=== PATIENT | female | born 1950 | race African-American/Black ===

== ENCOUNTER → 2016-10-17 | Outpatient (CLI) | payer MEDICARE, OTHER ==
--- NOTE | 2016-10-17 11:46 | KCIC ---
Indication: Postmenopausal. Bone mineral analysis of the lumbar spine and left hip was performed. The bone mineral density of the lumbar spine from L1 to L4 is 1.200 with a T score of 1.4. The bone mineral density of the left femoral neck is 0.968 with a T score of 0.2. IMPRESSION: Normal bone mineral density of the lumbar spine and left hip. Electronically signed by: Chetan Jarquin MD (10/17/2016 11:42 AM) [id number]
--- NOTE | 2016-10-17 13:20 | RAD ---
DATE: 10/17/2016 EXAM: MAMMO LAUREN SCREENING BILATERAL HISTORY: Routine screening COMPARISON: None available The breast parenchyma shows scattered fibroglandular densities. Breast parenchyma level B. FINDINGS: 2-D and 3-D tomosynthesis imaging was performed in CC and MLO projections. There is mild breast distortion and patchy heterogeneous fibroglandular opacities bilaterally compatible with the history of previous breast reduction surgery. No discrete mass or suspicious densities are seen. There are scattered benign type calcifications.. Benign-appearing lymph node type densities are present in the right axillary region. IMPRESSION: There is no mammographic evidence of malignancy either breast. Routine yearly mammographic follow-up is suggested. BI-RADS CATEGORY: 2 BENIGN FINDING(S) RECOMMENDED FOLLOW-UP: 12M 12 MONTH FOLLOW-UP PQRS compliance statement: Patient information was entered into a reminder system with a target due date for the next mammogram. Mammography is a sensitive method for finding small breast cancers, but it does not detect them all and is not a substitute for careful clinical examination. A negative mammogram does not negate a clinically suspicious finding and should not result in delay in biopsying a clinically suspicious abnormality. "Our facility is accredited by the [employer] Mammography Program."
== END | disposition home or self-care (01) ==
LOC: KCIC DEXA 10:54
PROVIDERS: ATTEND Internal Medicine
DX: Z12.31 Encounter for screening mammogram for malignant neoplasm of breast (principal); M81.0 Age-related osteoporosis without current pathological fracture; E11.9 Type 2 diabetes mellitus without complications; Z78.0 Asymptomatic menopausal state
CPT/HCPCS: 77063; 77080; G0202; 77067

== ENCOUNTER 2016-12-11 11:31 | Inpatient (IN) | payer MEDICARE, OTHER ==
[~2016-12-11] VITALS: Ht 160 cm; Wt 124.8 kg
[2016-12-11 12:05] VITALS: BP 189/102
[2016-12-11] MEDS ORDERED: VERA240C2 PO (13:02)
[2016-12-11] MEDS ORDERED: HYDR25TA9 PO (13:02)
[2016-12-11] MEDS ORDERED: PHEN37.53 PO (13:02)
[2016-12-11] MEDS ORDERED: GABA-586 PO (13:02)
[2016-12-11] MEDS ORDERED: MECL25TA3 PO (13:02)
[2016-12-11] MEDS ORDERED: BUDE10.2 IH (13:02)
[2016-12-11] MEDS ORDERED: HYDR-2868 PO (13:02)
[2016-12-11] MEDS ORDERED: ATOR10TA60 PO (13:03)
[2016-12-11] MEDS ORDERED: AMIT10TA PO (13:03)
[2016-12-11] MEDS ORDERED: POTA20TA82 PO (13:03)
[2016-12-11] MEDS ORDERED: DULO30CA2 PO (13:03)
[2016-12-11] MEDS ORDERED: LOSA100T6 PO (13:03)
[2016-12-11] MEDS ORDERED: LORA10TA68 PO (13:03)
[2016-12-11] MEDS ORDERED: MELO15TA23 PO (13:03)
[2016-12-11] MEDS ORDERED: GLIP10TA13 PO (13:03)
[2016-12-11] MEDS ORDERED: MONT10TA9 PO (13:03)
[2016-12-11] MEDS ORDERED: INSU200I4 SQ (13:11)
[2016-12-11] MEDS ORDERED: ACETAMINOPHEN 500 MG TABLET PO PRN (13:30)
--- NOTE | 2016-12-11 14:43 | RAD ---
Indication headache and dizziness. Noncontrast images of the head were obtained. Note is made of a previous examination 13 years ago. The calvarium appears unremarkable. The visualized paranasal sinuses appear unremarkable. There is no subdural or epidural hematoma. There is no mass or midline shift. No hemorrhage is seen. An acute finding is not apparent. IMPRESSION: No acute or significant finding seen on noncontrast CT images of the head. PQRS Compliance Statement: One or more of the following individualized dose reduction techniques were utilized for this examination: 1. Automated exposure control 2. Adjustment of the mA and/or kV according to patient size 3. Use of iterative reconstruction technique
[2016-12-11 14:45] VITALS: BP 157/77
[2016-12-11] MEDS: ONDANSETRON PF 4 MG/2 ML VIAL. IV PRN ×2 (14:59→23:59)
[2016-12-11] MEDS: MORPHINE SULFATE 2 MG/ML DISP.SYRIN. IV PRN ×2 (15:03→23:59)
[2016-12-11] MEDS: MECLIZINE HCL 12.5 MG TABLET. PO SCH ×2 (15:08→20:20)
[2016-12-11] MEDS: hydrALAZINE 25 MG TABLET PO SCH ×2 (15:09→20:22)
[2016-12-11] MEDS: ALBUTEROL SULFATE 2.5 MG/3 ML NEBU. NEB SCH ×2 (16:06→19:29)
[2016-12-11 16:21] LABS: BASO % 0 % (0-3); EOS % 5 % (0-3); HEMATOCRIT 37.1 % (36.0-47.0); HEMOGLOBIN 11.9 g/dL (12.0-15.5); LYMPH # 2.4 x10^3/uL (1.0-4.8); LYMPH % 30 % (24-48); MEAN CORPUSCULAR HEMOGLOBIN 26 pg (25-35); MEAN CORPUSCULAR HGB CONC 32 g/dL (31-37); MEAN CORPUSCULAR VOLUME 82 fL (79-100); MONO % 10 % (0-9); NEUT % 55 % (31-73); PLATELET COUNT 353 x10^3/uL (140-400); RED BLOOD COUNT 4.55 x10^6/uL (3.50-5.40); RED CELL DISTRIBUTION WIDTH 15.5 % (11.5-14.5); WHITE BLOOD COUNT 7.8 x10^3/uL (4.0-11.0)
--- NOTE | 2016-12-11 16:32 | PDOC1 ---
History and Physical Date of Admission Date of Admission 12/11/16 Identification/Chief Complaint Chief Complaint severe H, Dizziness, N/V Problems: Source Source: Patient History of Present Illness History of Present Illness Symptoms started since December 02 she was seen at the emergency room at [facility] for her severe headache her CT of the head at that time was negative she was discharged home and since then she gotten worse with more headache and dizziness and became very nauseous and had several episodes of vomiting she [facility] where she was treated with meclizine and was sent home she came to the office today because she is not able to keep any of her medications down her blood pressure was very high she wasn't feeling good she is nauseated she is very dizzy and having the vertigo along with nausea and vomiting it was felt that it is best to admit her and control her symptoms and the repeat her CT of the head since she did not have a repeat a yesterday when she was seen [facility] although her symptoms are consistent with peripheral vertigo probably from labyrinthitis Past Medical History Cardiovascular: HTN, Hyperlipidemia Pulmonary: Asthma, Other (sleep apnea) CENTRAL NERVOUS SYSTEM: Vertigo GI: GERD Psych: Depression Rheumatologic: Other (DJD, Vit D deffiency) Renal/: UTI Endocrine: Diabetes Past Surgical History Past Surgical History: Other (breast reduction, hernia surgery) Family History Family History: Hypertension Social History Smoke: No ALCOHOL: rare Drugs: None Current Medications Current Medications Current Medications Medications (Trade) Dose Ordered Sig/Marques Start Time Stop Time Status Last Admin Dose Admin Acetaminophen (Tylenol) 500 mg PRN Q6HRS PRN 12/11/16 13:30 Acetaminophen/ Hydrocodone Bitart (Lortab 7.5/325) 1 tab PRN Q8HRS PRN 12/11/16 13:30 Albuterol Sulfate (Ventolin Neb Soln) 2.5 mg RTQID 12/11/16 16:00 12/11/16 16:06 2.5 MG Amitriptyline HCl (Elavil) 10 mg QHS 12/11/16 21:00 Atorvastatin Calcium (Lipitor) 10 mg HS 12/11/16 21:00 Budesonide (Pulmicort) 0.5 mg RTBID 12/11/16 20:00 Cetirizine HCl (ZyrTEC) 10 mg DAILY 12/12/16 09:00 Duloxetine HCl (Cymbalta) 30 mg BID 12/11/16 21:00 Gabapentin (Neurontin) 300 mg QHS 12/11/16 21:00 Glipizide (Glucotrol) 10 mg DAILYAC 12/12/16 07:30 Hydralazine HCl (Apresoline) 25 mg TID 12/11/16 14:00 12/11/16 15:09 25 MG Hydrochlorothiazide (Hydrodiuril) 25 mg DAILY 12/12/16 09:00 Insulin Detemir (Levemir) 20 units QHS 12/11/16 21:00 Losartan Potassium (Cozaar) 100 mg DAILY 12/12/16 09:00 Meclizine HCl (Antivert) 25 mg TID 12/11/16 14:00 12/11/16 15:08 25 MG Meloxicam (Mobic) 15 mg DAILY 12/12/16 09:00 Metoprolol Succinate (Toprol Xl) 50 mg HS 12/11/16 21:00 Montelukast Sodium (Singulair) 10 mg HS 12/11/16 21:00 Morphine Sulfate 2 mg PRN Q8HRS PRN 12/11/16 13:30 12/11/16 15:03 2 MG Non-Formulary Medication 20 unit HS 12/11/16 21:00 12/11/16 21:00 DC Ondansetron HCl (Zofran) 4 mg PRN Q8HRS PRN 12/11/16 13:30 12/11/16 14:59 4 MG Potassium Chloride (Klor-Con) 20 meq DAILYWBKFT 12/12/16 08:00 Verapamil HCl (Calan Sr) 240 mg QHS 12/11/16 21:00 Allergies Allergies Allergies Coded Allergies Type Severity Reaction Last Updated Verified Sulfa (Sulfonamide Antibiotics) Allergy Severe Swelling 12/11/16 Yes corn Adverse Reaction Intermediate Diarrhea 12/11/16 Yes Uncoded Allergies Type Severity Reaction Last Updated Verified strawberries Allergy Severe Anaphylaxis 12/11/16 ROS Review of System CONSTITUTIONAL: No fever or chills EYES: No recent changes SKIN: No rash or itching CARDIOVASCULAR: No chest pain, syncope, palpitations, or edema RESPIRATORY: No SOB or cough GASTROINTESTINAL: No nausea, vomiting or abdominal pain NEUROLOGICAL: + headaches and dizziness no history of trauma to the head ENDOCRINE: No cold or heat intolerance GENITOURINARY: No urgency or frequency of urination MUSCULOSKELETAL: She does have chronic back pain and arthralgia LYMPHATICS: No enlarged lymph nodes Physical Exam Physical Exam GEN.: No apparent distress. Alert and oriented. HEENT: Head is normocephalic, atraumatic NECK: Supple. LUNGS: Clear to auscultation. HEART: RRR, S1, S2 present. Peripheral pulses intact ABDOMEN: Soft, nontender. Positive bowel sounds. EXTREMITIES: Without any cyanosis. NEUROLOGIC: Normal speech, normal tone PSYCHIATRIC: Normal affect, normal mood. SKIN: No ulcerations Vitals Vitals Vital Signs Date Time Temp Pulse Resp B/P (MAP) Pulse Ox O2 Delivery O2 Flow Rate FiO2 12/11/16 16:07 100 Room Air 12/11/16 15:33 20 12/11/16 15:09 99 189/102 12/11/16 14:45 96.6 96.6 Labs Labs Laboratory Tests Test 12/11/16 15:49 White Blood Count 7.8 x10^3/uL (4.0-11.0) Red Blood Count 4.55 x10^6/uL (3.50-5.40) Hemoglobin 11.9 g/dL (12.0-15.5) Hematocrit 37.1 % (36.0-47.0) Mean Corpuscular Volume 82 fL (79-100) Mean Corpuscular Hemoglobin 26 pg (25-35) Mean Corpuscular Hemoglobin Concent 32 g/dL (31-37) Red Cell Distribution Width 15.5 % (11.5-14.5) Platelet Count 353 x10^3/uL (140-400) Neutrophils (%) (Auto) 55 % (31-73) Lymphocytes (%) (Auto) 30 % (24-48) Monocytes (%) (Auto) 10 % (0-9) Eosinophils (%) (Auto) 5 % (0-3) Basophils (%) (Auto) 0 % (0-3) Neutrophils # (Auto) 4.3 x10^3uL (1.8-7.7) Lymphocytes # (Auto) 2.4 x10^3/uL (1.0-4.8) Monocytes # (Auto) 0.7 x10^3/uL (0.0-1.1) Eosinophils # (Auto) 0.4 x10^3/uL (0.0-0.7) Basophils # (Auto) 0.0 x10^3/uL (0.0-0.2) Laboratory Tests Test 12/11/16 15:49 White Blood Count 7.8 x10^3/uL (4.0-11.0) Red Blood Count 4.55 x10^6/uL (3.50-5.40) Hemoglobin 11.9 g/dL (12.0-15.5) Hematocrit 37.1 % (36.0-47.0) Mean Corpuscular Volume 82 fL (79-100) Mean Corpuscular Hemoglobin 26 pg (25-35) Mean Corpuscular Hemoglobin Concent 32 g/dL (31-37) Red Cell Distribution Width 15.5 % (11.5-14.5) Platelet Count 353 x10^3/uL (140-400) Neutrophils (%) (Auto) 55 % (31-73) Lymphocytes (%) (Auto) 30 % (24-48) Monocytes (%) (Auto) 10 % (0-9) Eosinophils (%) (Auto) 5 % (0-3) Basophils (%) (Auto) 0 % (0-3) Neutrophils # (Auto) 4.3 x10^3uL (1.8-7.7) Lymphocytes # (Auto) 2.4 x10^3/uL (1.0-4.8) Monocytes # (Auto) 0.7 x10^3/uL (0.0-1.1) Eosinophils # (Auto) 0.4 x10^3/uL (0.0-0.7) Basophils # (Auto) 0.0 x10^3/uL (0.0-0.2) VTE Prophylaxis Ordered VTE Prophylaxis Devices: Yes VTE Pharmacological Prophylaxi: Yes Assessment/Plan Assessment/Plan 1-peripheral vertigo associated was nausea and vomiting and not controlled with medications by mouth 2-Hypertension uncontrolled due to not able to take her medications by mouth 3-hyperlipidemia 4-morbid obesity 5-sleep apnea 6-diabetes mellitus type 2 7-degenerative joint disease Patient is admitted for control of her symptoms will ask neurology to see her and ask physical therapy to work with her on coping with vertigo JUAN MURRELL MD Dec 11, 2016 16:32
[2016-12-11] MEDS ORDERED: LABETALOL 20 MG/4 ML DISP.SYRIN. IVP PRN (16:45)
[2016-12-11 16:46] LABS: CREATININE 0.9 mg/dL (0.6-1.0); POTASSIUM 3.6 mmol/L (3.5-5.1)
--- NOTE | 2016-12-11 17:15 | PDOC2 ---
NEUROLOGY CONSULT Date of Admission Date of Admission DATE: 12/11/16 TIME: 17:04 Reason for Consult Reason for Consult: IMPRESSION: Severe headaches. Dizziness. Vision problems. Pseudotumor cerebri? HTN HLD DM Morbid obesity. RECOMMENDATIONS/PLAN: Pain control. Brain MRI w/wo contrast. Lab: see orders. LP to measure CSF opening pressure maybe needed after MRI. Treat medical diseases. HISTORY OF THE PRESENT ILLNESS: 66-y-old AA female patent with above medical diseases has Hx of chronic headaches for years but not like this severe this time. She described that her headaches as severe persistent pressure pain in her entire head and she rated her pain 10/10. She also had vomiting. She complained vision problems as unable to focus and blurred vision. She went to [facility] about 9 days ago and visit ER of [facility] the day before stating her headaches were still severe. Past Medical History Cardiovascular: HTN, Hyperlipidemia Pulmonary: Asthma, Other (sleep apnea) CENTRAL NERVOUS SYSTEM: Vertigo GI: GERD Psych: Depression Rheumatologic: Other (DJD, Vit D deffiency) Renal/: UTI Endocrine: Diabetes Past Surgical History Breast reduction, hernia surgery. Family History Hypertension Social History Smoke: No ALCOHOL: rare Drugs: None ALLERGY: Unknown MEDICATIONS: Refer to MAR REVIEW OF SYSTEMS: Constitutional: Morbit obesity. Head: No recent traumatic brain or head injury. Skin: No edema, or rash. Ear: No infection. Eyes: No vision loss or color blindness. Nose: No bleeding or purulent discharges. Hearing: No hearing decrease. Neck: No injury. Breast: No history of cancer, masses,or discharges. Cardiac: HTN, HLD. Pulmonary: No COPD. GI: No GI ulcer, GI bleeding. Urinary/genital: UTI. Endocrinologic: Diabetes Mellitus, morbid obesity. Skeletomuscular: No muscular atrophy, deformity. Neurological: see HP. Psychiatric: Denies drug use/abuse. Otherwise, not [id number] review of systems. PHYSICAL EXAMINATION: General appearance is in acute distress. HEENT: Normocephalic and nontraumatic. Eyes, nose, ears, and throat are unremarkable. Neck is supple. No lymphadenopathy. No crepitus. Cardiovascular: S1, S2, regular rate and rhythm. Pulmonary: Clear to auscultation bilaterally. Abdomen: Bowel sounds are positive. Extremities: No rash, lesions, or edema. No restriction of range of motion NEUROLOGICAL EXAMINATION: Awake. Oriented to time, place and person. PERRL. EOMI. CN: no focal findings. Muscle tone: within normal. Muscle strength: 5 DTR: 1 due to obesity. Plantar reflex: Flexor response bilaterally Gait: not examined in bed. Sensory exam: no abnormal findings. No cerebellar signs elicited. F-T-N test not performed due to severe headche and unwilling to open eyes. Current Medications Current Medications Current Medications Acetaminophen (Tylenol) 500 mg PRN Q6HRS PRN PO MILD PAIN / TEMP; Start at 13:30 Acetaminophen/ Hydrocodone Bitart (Lortab 7.5/325) 1 tab PRN Q8HRS PRN PO PAIN ; Start 12/11/16 at 13:30 Morphine Sulfate 2 mg PRN Q8HRS PRN IV PAIN Last administered on 12/11/16 15: 03; Start 12/11/16 at 13:30 Ondansetron HCl (Zofran) 4 mg PRN Q8HRS PRN IV NAUSEA/VOMITING Last administered on 12/11/16 14:59; Start 12/11/16 at 13:30 Amitriptyline HCl (Elavil) 10 mg QHS PO ; Start 12/11/16 at 21:00 Atorvastatin Calcium (Lipitor) 10 mg HS PO ; Start 12/11/16 at 21:00 Duloxetine HCl (Cymbalta) 30 mg BID PO ; Start 12/11/16 at 21:00 Hydralazine HCl (Apresoline) 25 mg TID PO Last administered on 12/11/16 15:09 ; Start 12/11/16 at 14:00 Hydrochlorothiazide (Hydrodiuril) 25 mg DAILY PO ; Start 12/12/16 at 09:00 Montelukast Sodium (Singulair) 10 mg HS PO ; Start 12/11/16 at 21:00 Non-Formulary Medication 2 puff BID IH ; Start 12/11/16 at 21:00; Status UNV Gabapentin (Neurontin) 300 mg QHS PO ; Start 12/11/16 at 21:00 Glipizide (Glucotrol) 10 mg DAILYAC PO ; Start 12/12/16 at 07:30 Non-Formulary Medication 20 unit HS SQ ; Start 12/11/16 at 21:00; Stop at 21:00; Status DC Cetirizine HCl (ZyrTEC) 10 mg DAILY PO ; Start 12/12/16 at 09:00 Losartan Potassium (Cozaar) 100 mg DAILY PO ; Start 12/12/16 at 09:00 Meclizine HCl (Antivert) 25 mg TID PO Last administered on 12/11/16t 15:08; Start 12/11/16 at 14:00 Meloxicam (Mobic) 15 mg DAILY PO ; Start 12/12/16 at 09:00 Potassium Chloride (Klor-Con) 20 meq DAILYWBKFT PO ; Start 12/12/16 at 08:00 Verapamil HCl (Calan Sr) 240 mg QHS PO ; Start 12/11/16 at 21:00 Metoprolol Succinate (Toprol Xl) 50 mg HS PO ; Start 12/11/16 at 21:00 Budesonide (Pulmicort) 0.5 mg RTBID NEB ; Start 12/11/16 at 20:00 Albuterol Sulfate (Ventolin Neb Soln) 2.5 mg RTQID NEB Last administered on 16:06; Start 12/11/16 at 16:00 Insulin Detemir (Levemir) 20 units QHS SQ ; Start 12/11/16 at 21:00 Enoxaparin Sodium (Lovenox 40mg Syringe) 40 mg Q12HR SQ ; Start 12/11/16 at 21: 00 Labetalol HCl (Normodyne) 20 mg PRN Q2HR PRN IVP HYPERTENSION, SEE COMMENTS; Start 12/11/16 at 16:45 Active Scripts Active Reported Tresiba Flextouch U-200 (Insulin Degludec) 200 Unit/1 Ml Insuln.pen 20 Unit SQ HS Potassium Chloride 20 Meq Tablet.er 20 Meq PO DAILY Claritin (Loratadine) 10 Mg Tablet 1 Tab PO DAILY Montelukast Sodium Tablet (Montelukast Sodium) 10 Mg Tablet 10 Mg PO HS Atorvastatin Calcium 10 Mg Tablet 10 Mg PO HS Meloxicam 15 Mg Tablet 1 Tab PO DAILY Amitriptyline Hcl 10 Mg Tablet 1 Tab PO QHS Glipizide 10 Mg Tablet 10 Mg PO DAILY Cymbalta (Duloxetine Hcl) 30 Mg Capsule.dr 30 Mg PO BID Losartan Potassium 100 Mg Tablet 100 Mg PO DAILY Gabapentin 300 Mg Capsule 300 Mg PO HS Verapamil Er (Verapamil Hcl) 240 Mg Cap24h.pel 1 Cap PO HS Hydralazine Hcl 25 Mg Tablet 1 Tab PO TID Phentermine Hcl 37.5 Mg Capsule 37.5 Mg PO DAILY Hydrochlorothiazide Tablet (Hydrochlorothiazide) 25 Mg Tablet 1 Tab PO DAILY Symbicort 160-4.5 Mcg Inhaler (Budesonide/Formoterol Fumarate) 10.2 Gm Hfa.aer.ad 2 Puff IH BID Meclizine Hcl 25 Mg Tablet 1 Tab PO TID Allergies Allergies: Coded Allergies: Sulfa (Sulfonamide Antibiotics) (Verified Allergy, Severe, Swelling, 12/11) my whole face swelled up corn (Verified Adverse Reaction, Intermediate, Diarrhea, 12/11/16) diarrhea Uncoded Allergies: strawberries (Allergy, Severe, Anaphylaxis, 12/11/16) Swells throat up Vitals VITALS Vital Signs Date Time Temp Pulse Resp B/P (MAP) Pulse Ox O2 Delivery O2 Flow Rate FiO2 12/11/16 16:07 100 Room Air 12/11/16 15:33 20 12/11/16 15:09 99 189/102 12/11/16 14:45 96.6 96.6 Labs Labs Laboratory Tests Test 12/11/16 15:49 12/11/16 16:41 White Blood Count 7.8 x10^3/uL (4.0-11.0) Red Blood Count 4.55 x10^6/uL (3.50-5.40) Hemoglobin 11.9 g/dL (12.0-15.5) Hematocrit 37.1 % (36.0-47.0) Mean Corpuscular Volume 82 fL (79-100) Mean Corpuscular Hemoglobin 26 pg (25-35) Mean Corpuscular Hemoglobin Concent 32 g/dL (31-37) Red Cell Distribution Width 15.5 % (11.5-14.5) Platelet Count 353 x10^3/uL (140-400) Neutrophils (%) (Auto) 55 % (31-73) Lymphocytes (%) (Auto) 30 % (24-48) Monocytes (%) (Auto) 10 % (0-9) Eosinophils (%) (Auto) 5 % (0-3) Basophils (%) (Auto) 0 % (0-3) Neutrophils # (Auto) 4.3 x10^3uL (1.8-7.7) Lymphocytes # (Auto) 2.4 x10^3/uL (1.0-4.8) Monocytes # (Auto) 0.7 x10^3/uL (0.0-1.1) Eosinophils # (Auto) 0.4 x10^3/uL (0.0-0.7) Basophils # (Auto) 0.0 x10^3/uL (0.0-0.2) Sodium Level 141 mmol/L (136-145) Potassium Level 3.6 mmol/L (3.5-5.1) Chloride Level 103 mmol/L (98-107) Carbon Dioxide Level 31 mmol/L (21-32) Anion Gap 7 (6-14) Blood Urea Nitrogen 14 mg/dL (7-20) Creatinine 0.9 mg/dL (0.6-1.0) Estimated GFR (Cockcroft-Gault) 76.0 Glucose Level 106 mg/dL (70-99) Calcium Level 9.0 mg/dL (8.5-10.1) Thyroid Stimulating Hormone (TSH) 1.453 uIU/mL (0.358-3.74) Glucose (Fingerstick) 62 mg/dL (70-99) Laboratory Tests Test 12/11/16 15:49 12/11/16 16:41 White Blood Count 7.8 x10^3/uL (4.0-11.0) Red Blood Count 4.55 x10^6/uL (3.50-5.40) Hemoglobin 11.9 g/dL (12.0-15.5) Hematocrit 37.1 % (36.0-47.0) Mean Corpuscular Volume 82 fL (79-100) Mean Corpuscular Hemoglobin 26 pg (25-35) Mean Corpuscular Hemoglobin Concent 32 g/dL (31-37) Red Cell Distribution Width 15.5 % (11.5-14.5) Platelet Count 353 x10^3/uL (140-400) Neutrophils (%) (Auto) 55 % (31-73) Lymphocytes (%) (Auto) 30 % (24-48) Monocytes (%) (Auto) 10 % (0-9) Eosinophils (%) (Auto) 5 % (0-3) Basophils (%) (Auto) 0 % (0-3) Neutrophils # (Auto) 4.3 x10^3uL (1.8-7.7) Lymphocytes # (Auto) 2.4 x10^3/uL (1.0-4.8) Monocytes # (Auto) 0.7 x10^3/uL (0.0-1.1) Eosinophils # (Auto) 0.4 x10^3/uL (0.0-0.7) Basophils # (Auto) 0.0 x10^3/uL (0.0-0.2) Sodium Level 141 mmol/L (136-145) Potassium Level 3.6 mmol/L (3.5-5.1) Chloride Level 103 mmol/L (98-107) Carbon Dioxide Level 31 mmol/L (21-32) Anion Gap 7 (6-14) Blood Urea Nitrogen 14 mg/dL (7-20) Creatinine 0.9 mg/dL (0.6-1.0) Estimated GFR (Cockcroft-Gault) 76.0 Glucose Level 106 mg/dL (70-99) Calcium Level 9.0 mg/dL (8.5-10.1) Thyroid Stimulating Hormone (TSH) 1.453 uIU/mL (0.358-3.74) Glucose (Fingerstick) 62 mg/dL (70-99) QUYNH LOUISE MD Dec 11, 2016 17:15
[2016-12-11] MEDS: HYDROcodone/APAP 7.5/325MG 1 TAB TABLET PO PRN (17:22)
[2016-12-11 17:49] LABS: ALBUMIN 3.1 g/dL (3.4-5.0); ALBUMIN/GLOBULIN RATIO 0.8 (1.0-1.7); CALCIUM 9.1 mg/dL (8.5-10.1); CREATININE 0.9 mg/dL (0.6-1.0); POTASSIUM 3.7 mmol/L (3.5-5.1); TOTAL BILIRUBIN 0.2 mg/dL (0.2-1.0); TOTAL PROTEIN 7.2 g/dL (6.4-8.2)
[2016-12-11 18:07] LABS: BARBITURATES NEG (NEG); BENZODIAZEPINES NEG (NEG); CANNABINOIDS NEG (NEG); COCAINE NEG (NEG); METHADONE NEG (NEG); OPIATES POS (NEG); PHENCYCLIDINE NEG (NEG)
[2016-12-11 19:00] VITALS: BP 151/82
[2016-12-11] MEDS ORDERED: LANS30CA66 PO (19:26)
[2016-12-11] MEDS: BUDESONIDE 0.5 MG/2 ML NEBU. NEB SCH (19:29)
[2016-12-11] MEDS: DULoxetine HCL 30 MG CAPSULE.DR PO SCH (20:19)
[2016-12-11] MEDS: VERAPAMIL SR 120 MG TABLET.ER. PO SCH (20:19)
[2016-12-11] MEDS: GABAPENTIN 300 MG CAPSULE. PO SCH (20:20)
[2016-12-11] MEDS: MONTELUKAST SODIUM 10 MG TABLET. PO SCH (20:20)
[2016-12-11] MEDS: AMITRIPTYLINE HCL 10 MG TABLET. PO SCH (20:20)
[2016-12-11] MEDS: ATORVASTATIN CALCIUM 10 MG TABLET. PO SCH (20:20)
[2016-12-11] MEDS: METOPROLOL SUCC 24HR ER 50 MG TAB.ER.24H. PO SCH (20:21)
[2016-12-11] MEDS: ENOXAPARIN 40 MG/0.4 ML SYRINGE. SQ SCH (20:27)
[2016-12-11] MEDS: INSULIN DETEMIR 300 UNITS/3 ML INSULN.PEN. SQ SCH (20:41)
[2016-12-11] MEDS ORDERED: NON FORMULARY ITEM (Insulin Degludec (Tresiba Flextouch U-200) 20 UNIT) SQ SCH (21:00)
[2016-12-11] MEDS ORDERED: NON FORMULARY ITEM (Budesonide/Formoterol Fumarate (Symbicort 160-4.5 Mcg Inhaler) 2 PUFF) IH SCH (21:00)
[2016-12-11 23:00] VITALS: BP 146/80
[2016-12-12 03:00] VITALS: BP 108/70
[2016-12-12 07:00] VITALS: BP 100/57
[2016-12-12] MEDS: glipiZIDE 5 MG TABLET PO SCH (07:53)
[2016-12-12] MEDS: POTASSIUM CHLORIDE 20 MEQ TABLET.ER. PO SCH (07:53)
[2016-12-12] MEDS: MECLIZINE HCL 12.5 MG TABLET. PO SCH ×3 (07:54→20:20)
[2016-12-12] MEDS: hydrALAZINE 25 MG TABLET PO SCH (07:55)
[2016-12-12] MEDS: hydroCHLOROthiazide 25 MG TABLET PO SCH (07:56)
[2016-12-12] MEDS: DULoxetine HCL 30 MG CAPSULE.DR PO SCH ×2 (07:56→20:20)
[2016-12-12] MEDS: LOSARTAN POTASSIUM 50 MG TABLET. PO SCH (07:56)
[2016-12-12] MEDS: MELOXICAM 7.5 MG TABLET PO SCH (07:57)
[2016-12-12] MEDS: CETIRIZINE HCL 10 MG TABLET. PO SCH (07:58)
[2016-12-12] MEDS: ENOXAPARIN 40 MG/0.4 ML SYRINGE. SQ SCH (08:00)
[2016-12-12] MEDS: BUDESONIDE 0.5 MG/2 ML NEBU. NEB SCH ×2 (08:00→20:01)
[2016-12-12] MEDS: ALBUTEROL SULFATE 2.5 MG/3 ML NEBU. NEB SCH ×4 (08:00→20:02)
[2016-12-12] MEDS: HYDROcodone/APAP 7.5/325MG 1 TAB TABLET PO PRN ×2 (08:00→17:27)
[2016-12-12] MEDS ORDERED: LORazepam 1 MG TABLET PO ONE (09:30)
[2016-12-12] MEDS: MORPHINE SULFATE 2 MG/ML DISP.SYRIN. IV PRN ×2 (09:38→20:22)
[2016-12-12] MEDS ORDERED: GADOBUTROL 10 MMOL/10 ML VIAL IV ONE (10:15)
--- NOTE | 2016-12-12 10:15 | PDOC ---
SUBJECTIVE Subjective Patient is off the floor to have her MRI, according to the nurse she is to continue to have headache frequently, her dizziness seemed to be better but she is a still dizzy her nausea is better she has not had any further vomiting OBJECTIVE Vital Signs Vital Signs Date Time Temp Pulse Resp B/P (MAP) Pulse Ox O2 Delivery O2 Flow Rate FiO2 12/12/16 09:38 20 95 Room Air 12/12/16 09:00 20 95 Room Air 12/12/16 08:00 99 Room Air 12/12/16 08:00 20 95 Room Air 12/12/16 07:56 70 100/57 12/12/16 07:55 70 100/57 12/12/16 07:00 97.4 70 18 100/57 (71) 98 Room Air 97.4 12/12/16 03:00 97.4 72 20 108/70 (83) 95 Room Air 97.4 12/12/16 00:32 18 100 Room Air 12/11/16 23:59 18 100 Room Air 12/11/16 23:00 97.7 85 20 146/80 (102) 97 Room Air 97.7 12/11/16 20:22 90 161/100 12/11/16 20:21 90 161/100 12/11/16 20:19 90 161/100 12/11/16 20:00 Room Air 12/11/16 19:30 100 Room Air 12/11/16 19:30 100 Room Air 12/11/16 19:00 97.8 93 20 151/82 (105) 95 Room Air 97.8 12/11/16 17:22 20 100 Room Air 12/11/16 16:07 100 Room Air 12/11/16 15:09 99 189/102 12/11/16 15:03 20 98 Room Air 12/11/16 14:45 96.6 92 20 157/77 (103) 100 Room Air 96.6 12/11/16 13:00 Room Air 12/11/16 12:05 96.8 99 20 189/102 (131) 98 Room Air 96.8 PHYSICAL EXAM Physical Exam No change in exam ASSESSMENT/PLAN Assessment/Plan Appreciates and neurology help patient had MRI and plans to have lumbar puncture with opening pressure will hold Lovenox so this can be done tomorrow morning in the meantime continue to control her dizziness and headache, her blood sugar seemed to be fairly okay Problems: COMMENT Lab Laboratory Tests Test 12/11/16 15:49 12/11/16 16:41 12/11/16 17:25 12/11/16 17:38 White Blood Count 7.8 x10^3/uL (4.0-11.0) Red Blood Count 4.55 x10^6/uL (3.50-5.40) Hemoglobin 11.9 g/dL (12.0-15.5) Hematocrit 37.1 % (36.0-47.0) Mean Corpuscular Volume 82 fL (79-100) Mean Corpuscular Hemoglobin 26 pg (25-35) Mean Corpuscular Hemoglobin Concent 32 g/dL (31-37) Red Cell Distribution Width 15.5 % (11.5-14.5) Platelet Count 353 x10^3/uL (140-400) Neutrophils (%) (Auto) 55 % (31-73) Lymphocytes (%) (Auto) 30 % (24-48) Monocytes (%) (Auto) 10 % (0-9) Eosinophils (%) (Auto) 5 % (0-3) Basophils (%) (Auto) 0 % (0-3) Neutrophils # (Auto) 4.3 x10^3uL (1.8-7.7) Lymphocytes # (Auto) 2.4 x10^3/uL (1.0-4.8) Monocytes # (Auto) 0.7 x10^3/uL (0.0-1.1) Eosinophils # (Auto) 0.4 x10^3/uL (0.0-0.7) Basophils # (Auto) 0.0 x10^3/uL (0.0-0.2) Erythrocyte Sedimentation Rate 42 (0-25) Sodium Level 140 mmol/L (136-145) Potassium Level 3.7 mmol/L (3.5-5.1) Chloride Level 102 mmol/L (98-107) Carbon Dioxide Level 29 mmol/L (21-32) Anion Gap 9 (6-14) Blood Urea Nitrogen 14 mg/dL (7-20) Creatinine 0.9 mg/dL (0.6-1.0) Estimated GFR (Cockcroft-Gault) 76.0 BUN/Creatinine Ratio 16 (6-20) Glucose Level 102 mg/dL (70-99) Calcium Level 9.1 mg/dL (8.5-10.1) Total Bilirubin 0.2 mg/dL (0.2-1.0) Aspartate Amino Transf (AST/SGOT) 20 U/L (15-37) Alanine Aminotransferase (ALT/SGPT) 31 U/L (14-59) Alkaline Phosphatase 114 U/L (46-116) Total Protein 7.2 g/dL (6.4-8.2) Albumin 3.1 g/dL (3.4-5.0) Albumin/Globulin Ratio 0.8 (1.0-1.7) Thyroid Stimulating Hormone (TSH) 1.453 uIU/mL (0.358-3.74) Glucose (Fingerstick) 62 mg/dL (70-99) 62 mg/dL (70-99) Urine Opiates Screen Pos (NEG) Urine Methadone Screen Neg (NEG) Urine Barbiturates Neg (NEG) Urine Phencyclidine Screen Neg (NEG) Urine Amphetamine/Methamphetamine Neg (NEG) Urine Benzodiazepines Screen Neg (NEG) Urine Cocaine Screen Neg (NEG) Urine Cannabinoids Screen Neg (NEG) Urine Ethyl Alcohol Neg (NEG) Test 12/11/16 17:55 12/11/16 20:34 12/12/16 04:20 12/12/16 07:17 Glucose (Fingerstick) 95 mg/dL (70-99) 157 mg/dL (70-99) 121 mg/dL (70-99) Triglycerides Level 182 mg/dL (0-150) Cholesterol Level 153 mg/dL (0-200) LDL Cholesterol, Calculated 79 mg/dL (0-100) VLDL Cholesterol, Calculated 36 mg/dL (0-40) Non-HDL Cholesterol Calculated 115 mg/dL (0-129) HDL Cholesterol 38 mg/dL (40-60) Cholesterol/HDL Ratio 4.0 JUAN MURRELL MD Dec 12, 2016 10:15
[2016-12-12 11:00] VITALS: BP 125/60
--- NOTE | 2016-12-12 11:08 | RAD ---
INDICATION: Worsening headaches. Dizziness and vomiting. Blurred vision. TECHNIQUE: Sagittal T1, axial T1, axial T2, axial FLAIR, axial T2 gradient, diffusion imaging with ADC map, postcontrast axial, and postcontrast coronal sequences are provided. 10 mL of intravenous Gadavist was administered without complication. No comparison MRI is available. There is a CT head from yesterday. FINDINGS: The ventricles and sulci are within normal limits for age. FLAIR hyperintensities in the supratentorial white matter are not specific but most suggestive of mild small vessel ischemic disease. There is no acute intracranial hemorrhage or extra-axial fluid collection. There is no mass effect or midline shift. There is no restricted diffusion to suggest an acute infarct. Intracranial flow voids are preserved. Cervicomedullary junction is unremarkable. Orbital contents are grossly unremarkable on whole brain imaging. The included paranasal sinuses and mastoid air cells are clear. There is no pathologic enhancement. There is a small left frontal developmental venous anomaly which is a normal vascular variant. IMPRESSION: 1. No acute intracranial findings. 2. Mild probable small vessel ischemic disease. Electronically signed by: Alex Arambula MD (12/12/2016 11:04 AM) [id number]
[2016-12-12] MEDS: PANTOPRAZOLE 40 MG TABLET.DR. PO SCH (11:27)
[2016-12-12 12:14] LABS: PROTHROMBIN TIME PATIENT 12.6 SEC (11.7-14.0)
--- NOTE | 2016-12-12 12:59 | PDOC ---
PROGRESS NOTES Assessment Assessment Severe headaches. Dizziness. Vision problems. Pseudotumor cerebri? HTN HLD DM Morbid obesity. No evidence of acute CVA or brain tumor this time. RECOMMENDATIONS/PLAN: Pain control. LP to measure CSF opening pressure measurement and CSF lab studies. Treat medical diseases. HISTORY OF THE PRESENT ILLNESS: 66-y-old AA female patent with above medical diseases has Hx of chronic headaches for years but not like this severe this time. She described that her headaches as severe persistent pressure pain in her entire head and she rated her pain 10/10. She also had vomiting. She complained vision problems as unable to focus and blurred vision. She went to [facility] about 9 days ago and visit ER of [facility] the day before stating her headaches were still severe. She stated that her headaches were better but still had headaches 8/10. on 12/12. Past Medical History Cardiovascular: HTN, Hyperlipidemia Pulmonary: Asthma, Other (sleep apnea) CENTRAL NERVOUS SYSTEM: Vertigo GI: GERD Psych: Depression Rheumatologic: Other (DJD, Vit D deffiency) Renal/: UTI Endocrine: Diabetes Past Surgical History Breast reduction, hernia surgery. Family History Hypertension Social History Smoke: No ALCOHOL: rare Drugs: None ALLERGY: Unknown MEDICATIONS: Refer to MAR REVIEW OF SYSTEMS: Constitutional: Morbit obesity. Head: No recent traumatic brain or head injury. Skin: No edema, or rash. Ear: No infection. Eyes: No vision loss or color blindness. Nose: No bleeding or purulent discharges. Hearing: No hearing decrease. Neck: No injury. Breast: No history of cancer, masses,or discharges. Cardiac: HTN, HLD. Pulmonary: No COPD. GI: No GI ulcer, GI bleeding. Urinary/genital: UTI. Endocrinologic: Diabetes Mellitus, morbid obesity. Skeletomuscular: No muscular atrophy, deformity. Neurological: see HP. Psychiatric: Denies drug use/abuse. Otherwise, not [id number] review of systems. PHYSICAL EXAMINATION: General appearance is in acute distress. HEENT: Normocephalic and nontraumatic. Eyes, nose, ears, and throat are unremarkable. Neck is supple. No lymphadenopathy. No crepitus. Cardiovascular: S1, S2, regular rate and rhythm. Pulmonary: Clear to auscultation bilaterally. Abdomen: Bowel sounds are positive. Extremities: No rash, lesions, or edema. No restriction of range of motion NEUROLOGICAL EXAMINATION: Awake. Oriented to time, place and person. PERRL. EOMI. CN: no focal findings. Muscle tone: within normal. Muscle strength: 5 DTR: 1 due to obesity. Plantar reflex: Flexor response bilaterally Gait: not examined in bed. Sensory exam: no abnormal findings. No cerebellar signs elicited. F-T-N test not performed due to severe headche and unwilling to open eyes. Objective Objective Vital Signs Date Time Temp Pulse Resp B/P (MAP) Pulse Ox O2 Delivery O2 Flow Rate FiO2 12/12/16 12:44 Room Air 12/12/16 10:08 20 95 12/12/16 07:56 70 100/57 12/12/16 07:00 97.4 97.4 Vitals Signs Vitals VS - Last 72 Hours, by Label Date Time Temp Pulse Resp B/P (MAP) Pulse Ox O2 Delivery O2 Flow Rate FiO2 12/12/16 12:44 Room Air 12/12/16 10:08 20 95 Room Air 12/12/16 09:38 20 95 Room Air 12/12/16 09:00 20 95 Room Air 12/12/16 08:00 99 Room Air 12/12/16 08:00 20 95 Room Air 12/12/16 07:56 70 100/57 12/12/16 07:55 70 100/57 12/12/16 07:00 97.4 70 18 100/57 (71) 98 Room Air 97.4 12/12/16 03:00 97.4 72 20 108/70 (83) 95 Room Air 97.4 12/11/16 23:59 18 100 Room Air 12/11/16 23:00 97.7 85 20 146/80 (102) 97 Room Air 97.7 12/11/16 20:22 90 161/100 12/11/16 20:21 90 161/100 12/11/16 20:19 90 161/100 12/11/16 20:00 Room Air 12/11/16 19:30 100 Room Air 12/11/16 19:30 100 Room Air 12/11/16 19:00 97.8 93 20 151/82 (105) 95 Room Air 97.8 12/11/16 17:22 20 100 Room Air 12/11/16 16:07 100 Room Air 10/12/17 15:09 99 189/102 12/11/16 15:03 20 98 Room Air 12/11/16 14:45 96.6 92 20 157/77 (103) 100 Room Air 96.6 12/11/16 13:00 Room Air 12/11/16 12:05 96.8 99 20 189/102 (131) 98 Room Air 96.8 Laboratory Laboratory Laboratory Tests Test 12/11/16 15:49 12/11/16 16:41 12/11/16 17:25 12/11/16 17:38 White Blood Count 7.8 x10^3/uL (4.0-11.0) Red Blood Count 4.55 x10^6/uL (3.50-5.40) Hemoglobin 11.9 g/dL (12.0-15.5) Hematocrit 37.1 % (36.0-47.0) Mean Corpuscular Volume 82 fL (79-100) Mean Corpuscular Hemoglobin 26 pg (25-35) Mean Corpuscular Hemoglobin Concent 32 g/dL (31-37) Red Cell Distribution Width 15.5 % (11.5-14.5) Platelet Count 353 x10^3/uL (140-400) Neutrophils (%) (Auto) 55 % (31-73) Lymphocytes (%) (Auto) 30 % (24-48) Monocytes (%) (Auto) 10 % (0-9) Eosinophils (%) (Auto) 5 % (0-3) Basophils (%) (Auto) 0 % (0-3) Neutrophils # (Auto) 4.3 x10^3uL (1.8-7.7) Lymphocytes # (Auto) 2.4 x10^3/uL (1.0-4.8) Monocytes # (Auto) 0.7 x10^3/uL (0.0-1.1) Eosinophils # (Auto) 0.4 x10^3/uL (0.0-0.7) Basophils # (Auto) 0.0 x10^3/uL (0.0-0.2) Erythrocyte Sedimentation Rate 42 (0-25) Sodium Level 140 mmol/L (136-145) Potassium Level 3.7 mmol/L (3.5-5.1) Chloride Level 102 mmol/L (98-107) Carbon Dioxide Level 29 mmol/L (21-32) Anion Gap 9 (6-14) Blood Urea Nitrogen 14 mg/dL (7-20) Creatinine 0.9 mg/dL (0.6-1.0) Estimated GFR (Cockcroft-Gault) 76.0 BUN/Creatinine Ratio 16 (6-20) Glucose Level 102 mg/dL (70-99) Calcium Level 9.1 mg/dL (8.5-10.1) Total Bilirubin 0.2 mg/dL (0.2-1.0) Aspartate Amino Transf (AST/SGOT) 20 U/L (15-37) Alanine Aminotransferase (ALT/SGPT) 31 U/L (14-59) Alkaline Phosphatase 114 U/L (46-116) Total Protein 7.2 g/dL (6.4-8.2) Albumin 3.1 g/dL (3.4-5.0) Albumin/Globulin Ratio 0.8 (1.0-1.7) Thyroid Stimulating Hormone (TSH) 1.453 uIU/mL (0.358-3.74) Glucose (Fingerstick) 62 mg/dL (70-99) 62 mg/dL (70-99) Urine Opiates Screen Pos (NEG) Urine Methadone Screen Neg (NEG) Urine Barbiturates Neg (NEG) Urine Phencyclidine Screen Neg (NEG) Urine Amphetamine/Methamphetamine Neg (NEG) Urine Benzodiazepines Screen Neg (NEG) Urine Cocaine Screen Neg (NEG) Urine Cannabinoids Screen Neg (NEG) Urine Ethyl Alcohol Neg (NEG) Test 12/11/16 17:55 12/11/16 20:34 12/12/16 04:20 12/12/16 07:17 Glucose (Fingerstick) 95 mg/dL (70-99) 157 mg/dL (70-99) 121 mg/dL (70-99) Triglycerides Level 182 mg/dL (0-150) Cholesterol Level 153 mg/dL (0-200) LDL Cholesterol, Calculated 79 mg/dL (0-100) VLDL Cholesterol, Calculated 36 mg/dL (0-40) Non-HDL Cholesterol Calculated 115 mg/dL (0-129) HDL Cholesterol 38 mg/dL (40-60) Cholesterol/HDL Ratio 4.0 Test 12/12/16 11:22 12/12/16 11:44 Glucose (Fingerstick) 153 mg/dL (70-99) Prothrombin Time 12.6 SEC (11.7-14.0) Prothromb Time International Ratio 1.0 (0.8-1.1) Medication Medications Current Medications Acetaminophen (Tylenol) 500 mg PRN Q6HRS PRN PO MILD PAIN / TEMP; Start at 13:30 Acetaminophen/ Hydrocodone Bitart (Lortab 7.5/325) 1 tab PRN Q8HRS PRN PO PAIN Last administered on 12/12/16 08:00; Start 12/11/16 at 13:30 Albuterol Sulfate (Ventolin Neb Soln) 2.5 mg RTQID NEB Last administered on 12:39; Start 12/11/16 at 16:00 Amitriptyline HCl (Elavil) 10 mg QHS PO Last administered on 12/11/16 20:20; Start 12/11/16 at 21:00 Atorvastatin Calcium (Lipitor) 10 mg HS PO Last administered on 12/11/16 20: 20; Start 12/11/16 at 21:00 Budesonide (Pulmicort) 0.5 mg RTBID NEB Last administered on 12/12/16 08:00; Start 12/11/16 at 20:00 Cetirizine HCl (ZyrTEC) 10 mg DAILY PO Last administered on 12/12/16 07:58; Start 12/12/16 at 09:00 Duloxetine HCl (Cymbalta) 30 mg BID PO Last administered on 12/12/16 07:56; Start 12/11/16 at 21:00 Enoxaparin Sodium (Lovenox 40mg Syringe) 40 mg Q12HR SQ Last administered on 08:00; Start 12/11/16 at 21:00 Gabapentin (Neurontin) 300 mg QHS PO Last administered on 12/11/16 20:20; Start 12/11/16 at 21:00 Gadobutrol (Gadavist) 10 mmol 1X ONCE IV Last administered on 12/12/16 10:24 ; Start 12/12/16 at 10:15; Stop 12/12/16 at 10:16; Status DC Glipizide (Glucotrol) 10 mg DAILYAC PO Last administered on 12/12/16 07:53; Start 12/12/16 at 07:30 Hydralazine HCl (Apresoline) 25 mg TID PO Last administered on 12/12/16 07:55 ; Start 12/11/16 at 14:00; Stop 12/12/16 at 09:47; Status DC Hydrochlorothiazide (Hydrodiuril) 25 mg DAILY PO Last administered on 07:56; Start 12/12/16 at 09:00 Insulin Detemir (Levemir) 20 units QHS SQ Last administered on 12/11/16 20:41 ; Start 12/11/16 at 21:00 Labetalol HCl (Normodyne) 20 mg PRN Q2HR PRN IVP HYPERTENSION, SEE COMMENTS; Start 12/11/16 at 16:45 Lorazepam (Ativan) 1 mg 1X ONCE PO Last administered on 12/12/16 09:37; Start 12/12/16 at 09:30; Stop 12/12/16 at 09:34; Status DC Losartan Potassium (Cozaar) 100 mg DAILY PO Last administered on 12/12/16 07: 56; Start 12/12/16 at 09:00 Meclizine HCl (Antivert) 25 mg TID PO Last administered on 12/12/16 07:54; Start 12/11/16 at 14:00 Meloxicam (Mobic) 15 mg DAILY PO Last administered on 12/12/16 07:57; Start 12/12/16 at 09:00 Metoprolol Succinate (Toprol Xl) 50 mg HS PO Last administered on 12/11/16 20 :21; Start 12/11/16 at 21:00 Montelukast Sodium (Singulair) 10 mg HS PO Last administered on 12/11/16 20: 20; Start 12/11/16 at 21:00 Morphine Sulfate 2 mg PRN Q8HRS PRN IV PAIN Last administered on 12/12/16 09: 38; Start 12/11/16 at 13:30 Non-Formulary Medication 2 puff BID IH ; Start 12/11/16 at 21:00; Status UNV Non-Formulary Medication 20 unit HS SQ ; Start 12/11/16 at 21:00; Stop at 21:00; Status DC Ondansetron HCl (Zofran) 4 mg PRN Q8HRS PRN IV NAUSEA/VOMITING Last administered on 12/11/16 23:59; Start 12/11/16 at 13:30 Pantoprazole Sodium (Protonix) 40 mg DAILYAC PO Last administered on 11:27; Start 12/12/16 at 11:30 Potassium Chloride (Klor-Con) 20 meq DAILYWBKFT PO Last administered on 07:53; Start 12/12/16 at 08:00 Verapamil HCl (Calan Sr) 240 mg QHS PO Last administered on 12/11/16 20:19; Start 12/11/16 at 21:00 Comment Review of Relevant I have reviewed the following items mary (where applicable) has been applied. QUYNH LOUISE MD Dec 12, 2016 12:59
[2016-12-12 15:00] VITALS: BP 110/70
[2016-12-12] MEDS ORDERED: LORazepam 0.5 MG TABLET PO PRN (17:00)
[2016-12-12] MEDS ORDERED: DEXTROSE 50% 25 GM / 50ML DISP.SYRIN. IV PRN (17:00)
[2016-12-12] MEDS: INSULIN ASPART 300 UNITS/3 ML INSULN.PEN SQ SCH (17:31)
[2016-12-12 19:00] VITALS: BP 113/59
[2016-12-12] MEDS: MONTELUKAST SODIUM 10 MG TABLET. PO SCH (20:20)
[2016-12-12] MEDS: ATORVASTATIN CALCIUM 10 MG TABLET. PO SCH (20:20)
[2016-12-12] MEDS: GABAPENTIN 300 MG CAPSULE. PO SCH (20:20)
[2016-12-12] MEDS: AMITRIPTYLINE HCL 10 MG TABLET. PO SCH (20:21)
[2016-12-12] MEDS: METOPROLOL SUCC 24HR ER 50 MG TAB.ER.24H. PO SCH (20:21)
[2016-12-12] MEDS: MAG HYDROX/ALUMINUM HYD/SIMETH 30 ML ORAL.SUSP PO PRN (20:22)
[2016-12-12] MEDS: VERAPAMIL SR 120 MG TABLET.ER. PO SCH (21:28)
[2016-12-12] MEDS: INSULIN DETEMIR 300 UNITS/3 ML INSULN.PEN. SQ SCH (21:31)
[2016-12-12 23:00] VITALS: BP 122/57
[2016-12-13] VITALS (13 sets, daily range): BP systolic 80–115; BP diastolic 42–67
[2016-12-13 05:22] LABS: HEMATOCRIT 34.5 % (36.0-47.0); HEMOGLOBIN 11.1 g/dL (12.0-15.5); RED BLOOD COUNT 4.25 x10^6/uL (3.50-5.40); RED CELL DISTRIBUTION WIDTH 15.1 % (11.5-14.5); WHITE BLOOD COUNT 6.6 x10^3/uL (4.0-11.0)
[2016-12-13 05:50] LABS: CREATININE 1.8 mg/dL (0.6-1.0); GFR 34.2; POTASSIUM 4.9 mmol/L (3.5-5.1)
[2016-12-13] MEDS: glipiZIDE 5 MG TABLET PO SCH ×2 (07:30→16:03)
[2016-12-13] MEDS: BUDESONIDE 0.5 MG/2 ML NEBU. NEB SCH ×2 (07:45→20:47)
[2016-12-13] MEDS: ALBUTEROL SULFATE 2.5 MG/3 ML NEBU. NEB SCH ×4 (07:45→20:47)
[2016-12-13] MEDS: HYDROcodone/APAP 7.5/325MG 1 TAB TABLET PO PRN ×2 (07:58→16:04)
[2016-12-13] MEDS: INSULIN ASPART 300 UNITS/3 ML INSULN.PEN SQ SCH ×3 (08:00→17:00)
[2016-12-13] MEDS: POTASSIUM CHLORIDE 20 MEQ TABLET.ER. PO SCH (08:00)
[2016-12-13] MEDS: DULoxetine HCL 30 MG CAPSULE.DR PO SCH ×2 (09:00→21:05)
[2016-12-13] MEDS: CETIRIZINE HCL 10 MG TABLET. PO SCH (09:00)
[2016-12-13] MEDS: MECLIZINE HCL 12.5 MG TABLET. PO SCH ×3 (09:00→21:06)
[2016-12-13] MEDS: LOSARTAN POTASSIUM 50 MG TABLET. PO SCH (09:00)
[2016-12-13] MEDS: hydroCHLOROthiazide 25 MG TABLET PO SCH (09:00)
--- NOTE | 2016-12-13 11:18 | PDOC ---
Provider Note Provider Note out for lp re headaches- labs ok, no temp, vss- sed r 42- cont same for now JESÚS DE LA ROSA MD Dec 13, 2016 11:18
--- NOTE | 2016-12-13 12:11 | RAD ---
Fluoroscopic guided diagnostic lumbar puncture Clinical indications: Headaches and dizziness since December 01, 2016. Procedure: The procedure and possible complications including bleeding and infection and spinal headache were explained. The patient provided both verbal and written consent. A timeout was performed which confirmed the name of the patient and date of and the type of procedure. Allergies to medications were reviewed. The patient was placed in the prone position on the fluoroscopic table and the lower back was prepped with Betadine and draped in the usual sterile fashion. A total of 4 cc of 1% lidocaine was utilized for local anesthesia. Using sterile technique and fluoroscopic guidance, a 20 -gauge 15 cm in length spinal needle was directed into the spinal canal at the L5-S1 level. Opening pressure was 27 cm of water. First few cc of CSF were mildly pink tinged which later cleared. A total of 11 cc of CSF was aspirated and placed into 4 separate specimen bottles. These were sent to laboratory for further processing as per the orders of the patient's physician. Closing pressure was 24 cm of water. The stylet was replaced and the needle was removed followed by 5 minutes of manual compression. The patient tolerated the procedure well without complication. A sterile bandage was placed on the puncture site. The patient was sent back to the floor for observation. Follow-up will be with the patient's physician. Postprocedure orders will be written by the patient's physician. I discussed this case with Dr. Loe Torres after completion of the procedure at approximately noon on December 13, 2016. Total fluoroscopic time: 0.8 minutes. Total fluoroscopic spot image: 1. IMPRESSION: Fluoroscopic guided lumbar puncture was performed without complication.
[2016-12-13 12:22] LABS: CSF PROTEIN 79.8 mg/dL (15.0-45.0)
[2016-12-13 12:54] LABS: CSF CLARITY CLEAR; CSF COLOR COLORLESS
[2016-12-13] MEDS: PANTOPRAZOLE 40 MG TABLET.DR. PO SCH (16:03)
[2016-12-13] MEDS: MELOXICAM 7.5 MG TABLET PO SCH (16:04)
--- NOTE | 2016-12-13 16:33 | PDOC ---
PROGRESS NOTES Assessment Assessment Severe headaches. Dizziness. Vision problems. IIP HTN HLD DM Morbid obesity. No evidence of acute CVA or brain tumor thsi time. RECOMMENDATIONS/PLAN: Pain control. Topamax 25 mg bid. Diamox 250 mg tid. Weight reduction. Treat medical diseases. CSF opening pressure on 12/13/16 is 27 Cm H2O, closing pressure 24 cm H2O. HISTORY OF THE PRESENT ILLNESS: 66-y-old AA female patent with above medical diseases has Hx of chronic headaches for years but not like this severe this time. She described that her headaches as severe persistent pressure pain in her entire head and she rated her pain 10/10. She also had vomiting. She complained vision problems as unable to focus and blurred vision. She went to [facility] about 9 days ago and visit ER of [facility] the day before stating her headaches were still severe. Past Medical History Cardiovascular: HTN, Hyperlipidemia Pulmonary: Asthma, Other (sleep apnea) CENTRAL NERVOUS SYSTEM: Vertigo GI: GERD Psych: Depression Rheumatologic: Other (DJD, Vit D deffiency) Renal/: UTI Endocrine: Diabetes Past Surgical History Breast reduction, hernia surgery. Family History Hypertension Social History Smoke: No ALCOHOL: rare Drugs: None ALLERGY: Unknown MEDICATIONS: Refer to MAR REVIEW OF SYSTEMS: Constitutional: Morbit obesity. Head: No recent traumatic brain or head injury. Skin: No edema, or rash. Ear: No infection. Eyes: No vision loss or color blindness. Nose: No bleeding or purulent discharges. Hearing: No hearing decrease. Neck: No injury. Breast: No history of cancer, masses,or discharges. Cardiac: HTN, HLD. Pulmonary: No COPD. GI: No GI ulcer, GI bleeding. Urinary/genital: UTI. Endocrinologic: Diabetes Mellitus, morbid obesity. Skeletomuscular: No muscular atrophy, deformity. Neurological: see HP. Psychiatric: Denies drug use/abuse. Otherwise, not [id number] review of systems. PHYSICAL EXAMINATION: General appearance is in subacute distress. HEENT: Normocephalic and nontraumatic. Eyes, nose, ears, and throat are unremarkable. Neck is supple. No lymphadenopathy. No crepitus. Cardiovascular: S1, S2, regular rate and rhythm. Pulmonary: Clear to auscultation bilaterally. Abdomen: Bowel sounds are positive. Extremities: No rash, lesions, or edema. No restriction of range of motion NEUROLOGICAL EXAMINATION: Awake. Oriented to time, place and person. PERRL. EOMI. CN: no focal findings. Muscle tone: within normal. Muscle strength: 5 DTR: 1 due to obesity. Plantar reflex: Flexor response bilaterally Gait: not examined in bed. Sensory exam: no abnormal findings. No cerebellar signs elicited. F-T-N test not performed due to severe headche and unwilling to open eyes. Objective Objective Vital Signs Date Time Temp Pulse Resp B/P (MAP) Pulse Ox O2 Delivery O2 Flow Rate FiO2 12/13/16 16:04 Room Air 12/13/16 11:00 97.6 68 20 108/67 (81) 93 97.6 Intake and Output 12/14/16 07:00 Intake Total 940 ml Balance 940 ml Intake Oral 940 ml # Voids 2 Vitals Signs Vitals VS - Last 72 Hours, by Label Date Time Temp Pulse Resp B/P (MAP) Pulse Ox O2 Delivery O2 Flow Rate FiO2 12/13/16 16:04 Room Air 12/13/16 15:36 Room Air 12/13/16 11:00 97.6 68 20 108/67 (81) 93 Room Air 97.6 12/13/16 08:00 Room Air 12/13/16 07:58 Room Air 12/13/16 07:46 90 Room Air 12/13/16 07:00 96.7 71 20 115/66 (82) 97 Room Air 96.7 12/13/16 03:04 96.3 66 20 100/65 (77) 91 Room Air 96.3 12/12/16 23:00 98.4 71 20 122/57 (78) 93 Room Air 98.4 12/12/16 21:28 84 113/59 12/12/16 21:26 20 Room Air 12/12/16 20:22 20 Room Air 12/12/16 20:21 84 113/59 12/12/16 20:20 Room Air 12/12/16 20:07 98 Room Air 12/12/16 20:05 98 Room Air 12/12/16 19:00 98.0 84 20 113/59 (77) 93 Room Air 98.0 12/12/16 18:27 20 98 Room Air 12/12/16 17:27 20 95 Room Air 12/12/16 17:07 Room Air 12/12/16 15:00 97.1 70 18 110/70 (83) 100 Room Air 97.1 12/12/16 12:44 Room Air 12/12/16 11:00 97.9 73 18 125/60 (81) 98 Room Air 97.9 12/12/16 10:08 95 12/12/16 09:38 20 95 Room Air 12/12/16 08:00 99 Room Air 12/12/16 08:00 Room Air 12/12/16 08:00 20 95 Room Air 12/12/16 07:56 70 100/57 12/12/16 07:55 70 100/57 12/12/16 07:00 97.4 70 18 100/57 (71) 98 Room Air 97.4 Laboratory Laboratory Laboratory Tests Test 12/12/16 16:43 12/12/16 20:37 12/13/16 04:45 12/13/16 07:12 Glucose (Fingerstick) 229 mg/dL (70-99) 199 mg/dL (70-99) 135 mg/dL (70-99) White Blood Count 6.6 x10^3/uL (4.0-11.0) Red Blood Count 4.25 x10^6/uL (3.50-5.40) Hemoglobin 11.1 g/dL (12.0-15.5) Hematocrit 34.5 % (36.0-47.0) Mean Corpuscular Volume 81 fL (79-100) Mean Corpuscular Hemoglobin 26 pg (25-35) Mean Corpuscular Hemoglobin Concent 32 g/dL (31-37) Red Cell Distribution Width 15.1 % (11.5-14.5) Platelet Count 377 x10^3/uL (140-400) Sodium Level 138 mmol/L (136-145) Potassium Level 4.9 mmol/L (3.5-5.1) Chloride Level 101 mmol/L (98-107) Carbon Dioxide Level 34 mmol/L (21-32) Anion Gap 3 (6-14) Blood Urea Nitrogen 26 mg/dL (7-20) Creatinine 1.8 mg/dL (0.6-1.0) Estimated GFR (Cockcroft-Gault) 34.2 Glucose Level 143 mg/dL (70-99) Calcium Level 9.0 mg/dL (8.5-10.1) Test 12/13/16 11:35 CSF Tube Number 4 CSF Volume 1.1 CSF Color Colorless CSF Clarity Clear CSF WBC 3 CSF RBC 10 CSF Mononuclear WBCs % 100 % CSF Glucose 80 mg/dL (37-70) CSF Total Protein 79.8 mg/dL (15.0-45.0) Microbiology 12/13/16 Gram Stain - Final, Complete Medication Medications Current Medications Al Hydroxide/Mg Hydroxide (Mylanta Plus Xs) 15 ml PRN Q4HRS PRN PO HEARTBURN / GAS Last administered on 12/12/16 20:22; Start 12/12/16 at 20:00 Dextrose (Dextrose 50%-Water Syringe) 12.5 gm PRN Q15MIN PRN IV SEE COMMENTS; Start 12/12/16 at 17:00 Insulin Aspart (NovoLOG) 0-5 UNITS TIDWMEALS SQ Last administered on 17:31; Start 12/12/16 at 17:00 Lorazepam (Ativan) 0.5 mg PRN Q8HRS PRN PO ANXIETY / AGITATION; Start at 17:00 Comment Review of Relevant I have reviewed the following items mary (where applicable) has been applied. QUYNH LOUISE MD Dec 13, 2016 16:33
[2016-12-13] MEDS: METOPROLOL SUCC 24HR ER 50 MG TAB.ER.24H. PO SCH (21:00)
[2016-12-13] MEDS: acetaZOLAMIDE 250 MG TABLET. PO SCH (21:00)
[2016-12-13] MEDS: VERAPAMIL SR 120 MG TABLET.ER. PO SCH (21:00)
[2016-12-13] MEDS: AMITRIPTYLINE HCL 10 MG TABLET. PO SCH (21:06)
[2016-12-13] MEDS: GABAPENTIN 300 MG CAPSULE. PO SCH (21:06)
[2016-12-13] MEDS: ATORVASTATIN CALCIUM 10 MG TABLET. PO SCH (21:06)
[2016-12-13] MEDS: MONTELUKAST SODIUM 10 MG TABLET. PO SCH (21:06)
[2016-12-13] MEDS: TOPIRAMATE 25 MG TABLET. PO SCH (21:06)
[2016-12-13] MEDS: INSULIN DETEMIR 300 UNITS/3 ML INSULN.PEN. SQ SCH (21:14)
[2016-12-13] MEDS: MORPHINE SULFATE 2 MG/ML DISP.SYRIN. IV PRN (21:18)
[2016-12-14 03:00] VITALS: BP 116/57
[2016-12-14 07:00] VITALS: BP 118/60
[2016-12-14] MEDS: INSULIN ASPART 300 UNITS/3 ML INSULN.PEN SQ SCH ×3 (07:34→17:30)
[2016-12-14] MEDS: PANTOPRAZOLE 40 MG TABLET.DR. PO SCH (07:47)
[2016-12-14] MEDS: glipiZIDE 5 MG TABLET PO SCH (07:47)
[2016-12-14] MEDS: ALBUTEROL SULFATE 2.5 MG/3 ML NEBU. NEB SCH ×4 (08:11→19:24)
[2016-12-14] MEDS: BUDESONIDE 0.5 MG/2 ML NEBU. NEB SCH ×2 (08:12→19:25)
[2016-12-14] MEDS: ONDANSETRON PF 4 MG/2 ML VIAL. IV PRN (08:16)
[2016-12-14] MEDS: hydroCHLOROthiazide 25 MG TABLET PO SCH (09:00)
--- NOTE | 2016-12-14 09:19 | PDOC ---
Provider Note Provider Note same after lp, no new sxs- bp low, labs ok- csf pressure up a little, cons w/ pseudotumor cerebri, as are visual sxs and recent onset- cont new meds, hold hctz re bp, follow headache pattern JESÚS DE LA ROSA MD Dec 14, 2016 09:19
[2016-12-14] MEDS: CETIRIZINE HCL 10 MG TABLET. PO SCH (09:24)
[2016-12-14] MEDS: acetaZOLAMIDE 250 MG TABLET. PO SCH ×3 (09:24→20:28)
[2016-12-14] MEDS: MECLIZINE HCL 12.5 MG TABLET. PO SCH ×3 (09:25→20:28)
[2016-12-14] MEDS: MELOXICAM 7.5 MG TABLET PO SCH (09:25)
[2016-12-14] MEDS: POTASSIUM CHLORIDE 20 MEQ TABLET.ER. PO SCH (09:25)
[2016-12-14] MEDS: TOPIRAMATE 25 MG TABLET. PO SCH ×2 (09:26→20:28)
[2016-12-14] MEDS: DULoxetine HCL 30 MG CAPSULE.DR PO SCH ×2 (09:26→20:28)
[2016-12-14] MEDS: LOSARTAN POTASSIUM 50 MG TABLET. PO SCH (09:26)
[2016-12-14 11:00] VITALS: BP 126/67
[2016-12-14 15:00] VITALS: BP 119/52
--- NOTE | 2016-12-14 16:23 | PDOC ---
PROGRESS NOTES Assessment Assessment Severe headaches. Dizziness. Vision problems. IIP Migraine headache combined with IIP. HTN HLD DM Morbid obesity. No evidence of acute CVA or brain tumor this time. RECOMMENDATIONS/PLAN: Pain control. Morphine 2 mg q4h PRN. Topamax 25 mg bid. Diamox 250 mg tid. Weight reduction. Treat medical diseases. CSF opening pressure on 12/13/16 is 27 Cm H2O, closing pressure 24 cm H2O. HISTORY OF THE PRESENT ILLNESS: 66-y-old AA female patent with above medical diseases has Hx of chronic headaches for years but not like this severe this time. She described that her headaches as severe persistent pressure pain in her entire head and she rated her pain 10/10. She also had vomiting. She complained vision problems as unable to focus and blurred vision. She went to [facility] about 9 days ago and visit ER of [facility] the day before stating her headaches were still severe. Past Medical History Cardiovascular: HTN, Hyperlipidemia Pulmonary: Asthma, Other (sleep apnea) CENTRAL NERVOUS SYSTEM: Vertigo GI: GERD Psych: Depression Rheumatologic: Other (DJD, Vit D deffiency) Renal/: UTI Endocrine: Diabetes Past Surgical History Breast reduction, hernia surgery. Family History Hypertension Social History Smoke: No ALCOHOL: rare Drugs: None ALLERGY: Unknown MEDICATIONS: Refer to MAR REVIEW OF SYSTEMS: Constitutional: Morbit obesity. Head: No recent traumatic brain or head injury. Skin: No edema, or rash. Ear: No infection. Eyes: No vision loss or color blindness. Nose: No bleeding or purulent discharges. Hearing: No hearing decrease. Neck: No injury. Breast: No history of cancer, masses,or discharges. Cardiac: HTN, HLD. Pulmonary: No COPD. GI: No GI ulcer, GI bleeding. Urinary/genital: UTI. Endocrinologic: Diabetes Mellitus, morbid obesity. Skeletomuscular: No muscular atrophy, deformity. Neurological: see HP. Psychiatric: Denies drug use/abuse. Otherwise, not [id number] review of systems. PHYSICAL EXAMINATION: General appearance is in subacute distress. HEENT: Normocephalic and nontraumatic. Eyes, nose, ears, and throat are unremarkable. Neck is supple. No lymphadenopathy. No crepitus. Cardiovascular: S1, S2, regular rate and rhythm. Pulmonary: Clear to auscultation bilaterally. Abdomen: Bowel sounds are positive. Extremities: No rash, lesions, or edema. No restriction of range of motion NEUROLOGICAL EXAMINATION: Awake. Oriented to time, place and person. PERRL. EOMI. CN: no focal findings. Muscle tone: within normal. Muscle strength: 5 DTR: 1 due to obesity. Plantar reflex: Flexor response bilaterally Gait: not examined in bed. Sensory exam: no abnormal findings. No cerebellar signs elicited. F-T-N test not performed due to severe headche and unwilling to open eyes. Objective Objective Vital Signs Date Time Temp Pulse Resp B/P (MAP) Pulse Ox O2 Delivery O2 Flow Rate FiO2 12/14/16 15:00 98.2 85 18 119/52 (74) Room Air 95.0 98.2 12/14/16 11:00 98 Intake and Output 12/15/16 07:00 Intake Total 470 ml Output Total 600 ml Balance -130 ml Intake Oral 470 ml Output Urine Total 600 ml # Voids 1 Vitals Signs Vitals VS - Last 72 Hours, by Label Date Time Temp Pulse Resp B/P (MAP) Pulse Ox O2 Delivery O2 Flow Rate FiO2 12/14/16 15:00 98.2 85 18 119/52 (74) Room Air 95.0 98.2 12/14/16 12:24 Room Air 12/14/16 11:00 98.1 81 20 126/67 (86) 98 Room Air 98.1 12/14/16 09:26 71 118/60 12/14/16 08:16 98 Room Air 12/14/16 08:13 98 Room Air 12/14/16 08:00 Room Air 12/14/16 07:00 97.9 71 18 118/60 (79) 94 Room Air 97.9 12/14/16 03:00 97.5 69 17 116/57 (76) 98 Room Air 97.5 12/13/16 23:00 97.2 73 18 102/47 (65) 96 Room Air 97.2 12/13/16 21:50 96 Room Air 12/13/16 21:18 96 Room Air 12/13/16 21:00 66 109/51 12/13/16 21:00 66 109/51 12/13/16 20:51 96 Room Air 12/13/16 20:49 96 Room Air 12/13/16 19:56 Room Air 12/13/16 19:00 96.6 66 18 109/51 (70) 94 Room Air 96.6 12/13/16 16:04 Room Air 12/13/16 15:45 68 99/57 (71) 93 12/13/16 15:36 Room Air 12/13/16 14:45 60 88/53 (65) 92 12/13/16 13:45 57 93/49 (64) 91 12/13/16 13:15 72 87/65 (72) 91 12/13/16 12:45 59 80/42 (55) 92 12/13/16 12:30 64 90/62 (71) 92 12/13/16 12:15 59 103/57 (72) 91 12/13/16 12:00 97.9 59 18 113/55 (74) 92 Room Air 97.9 12/13/16 11:00 97.6 68 20 108/67 (81) 93 Room Air 97.6 12/13/16 08:00 Room Air 12/13/16 07:58 Room Air 12/13/16 07:46 90 Room Air 12/13/16 07:00 96.7 71 20 115/66 (82) 97 Room Air 96.7 Laboratory Laboratory Laboratory Tests Test 12/13/16 16:57 12/13/16 20:30 12/14/16 07:09 12/14/16 10:50 Glucose (Fingerstick) 142 mg/dL (70-99) 180 mg/dL (70-99) 135 mg/dL (70-99) 188 mg/dL (70-99) Test 12/14/16 16:17 Glucose (Fingerstick) 185 mg/dL (70-99) Microbiology 12/13/16 Gram Stain - Final, Complete Medication Medications Current Medications Acetazolamide (Diamox) 250 mg TID PO Last administered on 12/14/16 14:43; Start 12/13/16 at 21:00 Topiramate (Topamax) 25 mg BID PO Last administered on 12/14/16 09:26; Start 12/13/16 at 21:00 Comment Review of Relevant I have reviewed the following items mary (where applicable) has been applied. QUYNH LOUISE MD Dec 14, 2016 16:23
[2016-12-14] MEDS ORDERED: MORPHINE SULFATE 2 MG/ML DISP.SYRIN. IV PRN (16:30)
[2016-12-14 19:00] VITALS: BP 131/69
[2016-12-14] MEDS: HYDROcodone/APAP 7.5/325MG 1 TAB TABLET PO PRN (19:26)
[2016-12-14] MEDS: ATORVASTATIN CALCIUM 10 MG TABLET. PO SCH (20:28)
[2016-12-14] MEDS: MONTELUKAST SODIUM 10 MG TABLET. PO SCH (20:28)
[2016-12-14] MEDS: GABAPENTIN 300 MG CAPSULE. PO SCH (20:28)
[2016-12-14] MEDS: METOPROLOL SUCC 24HR ER 50 MG TAB.ER.24H. PO SCH (20:29)
[2016-12-14] MEDS: VERAPAMIL SR 120 MG TABLET.ER. PO SCH (20:29)
[2016-12-14] MEDS: AMITRIPTYLINE HCL 10 MG TABLET. PO SCH (20:29)
[2016-12-14] MEDS: INSULIN DETEMIR 300 UNITS/3 ML INSULN.PEN. SQ SCH (21:54)
[2016-12-14 23:00] VITALS: BP 119/63
[2016-12-15] VITALS (9 sets, daily range): BP systolic 76–151; BP diastolic 42–72
[2016-12-15] MEDS: BUDESONIDE 0.5 MG/2 ML NEBU. NEB SCH ×2 (07:19→19:49)
[2016-12-15] MEDS: ALBUTEROL SULFATE 2.5 MG/3 ML NEBU. NEB SCH ×3 (07:20→19:49)
[2016-12-15] MEDS: INSULIN ASPART 300 UNITS/3 ML INSULN.PEN SQ SCH (08:00)
--- NOTE | 2016-12-15 08:17 | PDOC ---
Provider Note Provider Note bp still down, vss, FLOWER seems same as on admit- sluggish but responsive, wants to stay another day re pain, new meds- cont same, hold verapamil re lower bp JESÚS DE LA ROSA MD Dec 15, 2016 08:17
[2016-12-15] MEDS: MECLIZINE HCL 12.5 MG TABLET. PO SCH ×3 (08:18→21:10)
[2016-12-15] MEDS: TOPIRAMATE 25 MG TABLET. PO SCH ×2 (08:18→21:10)
[2016-12-15] MEDS: DULoxetine HCL 30 MG CAPSULE.DR PO SCH ×2 (08:19→21:10)
[2016-12-15] MEDS: PANTOPRAZOLE 40 MG TABLET.DR. PO SCH (08:20)
[2016-12-15] MEDS: POTASSIUM CHLORIDE 20 MEQ TABLET.ER. PO SCH (08:20)
[2016-12-15] MEDS: LOSARTAN POTASSIUM 50 MG TABLET. PO SCH (08:20)
[2016-12-15] MEDS: CETIRIZINE HCL 10 MG TABLET. PO SCH (08:21)
[2016-12-15] MEDS: acetaZOLAMIDE 250 MG TABLET. PO SCH ×3 (08:21→21:10)
[2016-12-15] MEDS: glipiZIDE 5 MG TABLET PO SCH (08:21)
[2016-12-15] MEDS: MELOXICAM 7.5 MG TABLET PO SCH (08:21)
[2016-12-15 09:50] LABS: CREATININE 1.2 mg/dL (0.6-1.0); GFR 54.6; POTASSIUM 4.6 mmol/L (3.5-5.1)
--- NOTE | 2016-12-15 11:17 | PDOC ---
PROGRESS NOTES Assessment Headaches related to benign intracranial hypertension and migraines No evidence of acute CVA or brain tumor this time. Plan Morphine 2 mg q4h PRN while in hospital. Topamax 25 mg bid. Diamox 250 mg tid. Weight reduction. Treat medical diseases. Okay for discharge Follow-up with Dr. Torres In one month Subjective Headaches are better Objective Vital Signs Date Time Temp Pulse Resp B/P (MAP) Pulse Ox O2 Delivery O2 Flow Rate FiO2 12/15/16 10:27 83/49 (60) 12/15/16 10:25 96.7 47 20 95 Room Air 96.7 12/14/16 15:00 95.0 PHYSICAL EXAM Alert. Oriented to time, place and person. PERRL. EOMI. CN: no focal findings. Muscle tone: normal. Muscle strength: 5/5 DTR: 2+ Plantar reflex: flexor Gait: normal Sensory exam: no abnormal findings. No cerebellar signs elicited. Review of Relevant I have reviewed the following items mary (where applicable) has been applied. Labs Laboratory Tests Test 12/13/16 11:35 12/13/16 16:57 12/13/16 20:30 12/14/16 07:09 CSF Tube Number 4 CSF Volume 1.1 CSF Color Colorless CSF Clarity Clear CSF WBC 3 CSF RBC 10 CSF Mononuclear WBCs % 100 % CSF Glucose 80 mg/dL (37-70) CSF Total Protein 79.8 mg/dL (15.0-45.0) Glucose (Fingerstick) 142 mg/dL (70-99) 180 mg/dL (70-99) 135 mg/dL (70-99) Test 12/14/16 10:50 12/14/16 16:17 12/14/16 21:51 12/15/16 07:25 Glucose (Fingerstick) 188 mg/dL (70-99) 185 mg/dL (70-99) 159 mg/dL (70-99) 133 mg/dL (70-99) Test 12/15/16 08:50 Sodium Level 137 mmol/L (136-145) Potassium Level 4.6 mmol/L (3.5-5.1) Chloride Level 102 mmol/L (98-107) Carbon Dioxide Level 29 mmol/L (21-32) Anion Gap 6 (6-14) Blood Urea Nitrogen 29 mg/dL (7-20) Creatinine 1.2 mg/dL (0.6-1.0) Estimated GFR (Cockcroft-Gault) 54.6 Glucose Level 183 mg/dL (70-99) Calcium Level 9.0 mg/dL (8.5-10.1) Laboratory Tests Test 12/14/16 16:17 12/14/16 21:51 12/15/16 07:25 12/15/16 08:50 Glucose (Fingerstick) 185 mg/dL (70-99) 159 mg/dL (70-99) 133 mg/dL (70-99) Sodium Level 137 mmol/L (136-145) Potassium Level 4.6 mmol/L (3.5-5.1) Chloride Level 102 mmol/L (98-107) Carbon Dioxide Level 29 mmol/L (21-32) Anion Gap 6 (6-14) Blood Urea Nitrogen 29 mg/dL (7-20) Creatinine 1.2 mg/dL (0.6-1.0) Estimated GFR (Cockcroft-Gault) 54.6 Glucose Level 183 mg/dL (70-99) Calcium Level 9.0 mg/dL (8.5-10.1) Microbiology 12/13/16 Gram Stain - Final, Complete Medications Current Medications Acetaminophen (Tylenol) 500 mg PRN Q6HRS PRN PO MILD PAIN / TEMP; Start at 13:30 Acetaminophen/ Hydrocodone Bitart (Lortab 7.5/325) 1 tab PRN Q8HRS PRN PO PAIN Last administered on 12/14/16 19:26; Start 12/11/16 at 13:30 Morphine Sulfate 2 mg PRN Q8HRS PRN IV PAIN Last administered on 12/13/16 21: 18; Start 12/11/16 at 13:30; Stop 12/14/16 at 16:22; Status DC Ondansetron HCl (Zofran) 4 mg PRN Q8HRS PRN IV NAUSEA/VOMITING Last administered on 12/14/16 08:16; Start 12/11/16 at 13:30 Amitriptyline HCl (Elavil) 10 mg QHS PO Last administered on 12/14/16 20:29; Start 12/11/16 at 21:00 Atorvastatin Calcium (Lipitor) 10 mg HS PO Last administered on 12/14/16 20: 28; Start 12/11/16 at 21:00 Duloxetine HCl (Cymbalta) 30 mg BID PO Last administered on 12/15/16 08:19; Start 12/11/16 at 21:00 Hydralazine HCl (Apresoline) 25 mg TID PO Last administered on 12/12/16 07:55 ; Start 12/11/16 at 14:00; Stop 12/12/16 at 09:47; Status DC Hydrochlorothiazide (Hydrodiuril) 25 mg DAILY PO Last administered on 07:56; Start 12/12/16 at 09:00; Stop 12/14/16 at 09:10; Status DC Montelukast Sodium (Singulair) 10 mg HS PO Last administered on 12/14/16 20: 28; Start 12/11/16 at 21:00 Non-Formulary Medication 2 puff BID IH ; Start 12/11/16 at 21:00; Status UNV Gabapentin (Neurontin) 300 mg QHS PO Last administered on 12/14/16 20:28; Start 12/11/16 at 21:00 Glipizide (Glucotrol) 10 mg DAILYAC PO Last administered on 12/15/16 08:21; Start 12/12/16 at 07:30 Non-Formulary Medication 20 unit HS SQ ; Start 12/11/16 at 21:00; Stop at 21:00; Status DC Cetirizine HCl (ZyrTEC) 10 mg DAILY PO Last administered on 12/15/16 08:21; Start 12/12/16 at 09:00 Losartan Potassium (Cozaar) 100 mg DAILY PO Last administered on 12/15/16 08: 20; Start 12/12/16 at 09:00 Meclizine HCl (Antivert) 25 mg TID PO Last administered on 12/15/16 08:18; Start 12/11/16 at 14:00 Meloxicam (Mobic) 15 mg DAILY PO Last administered on 12/15/16 08:21; Start 12/12/16 at 09:00 Potassium Chloride (Klor-Con) 20 meq DAILYWBKFT PO Last administered on 08:20; Start 12/12/16 at 08:00 Verapamil HCl (Calan Sr) 240 mg QHS PO Last administered on 12/14/16 20:29; Start 12/11/16 at 21:00; Stop 12/15/16 at 08:18; Status DC Metoprolol Succinate (Toprol Xl) 50 mg HS PO Last administered on 12/14/16 20 :29; Start 12/11/16 at 21:00 Budesonide (Pulmicort) 0.5 mg RTBID NEB Last administered on 12/15/16 07:19; Start 12/11/16 at 20:00 Albuterol Sulfate (Ventolin Neb Soln) 2.5 mg RTQID NEB Last administered on 07:20; Start 12/11/16 at 16:00 Insulin Detemir (Levemir) 20 units QHS SQ Last administered on 12/14/16 21:54 ; Start 12/11/16 at 21:00 Enoxaparin Sodium (Lovenox 40mg Syringe) 40 mg Q12HR SQ Last administered on 08:00; Start 12/11/16 at 21:00; Stop 12/12/16 at 15:44; Status DC Labetalol HCl (Normodyne) 20 mg PRN Q2HR PRN IVP HYPERTENSION, SEE COMMENTS; Start 12/11/16 at 16:45; Stop 12/14/16 at 09:10; Status DC Lorazepam (Ativan) 1 mg 1X ONCE PO Last administered on 12/12/16 09:37; Start 12/12/16 at 09:30; Stop 12/12/16 at 09:34; Status DC Gadobutrol (Gadavist) 10 mmol 1X ONCE IV Last administered on 12/12/16 10:24 ; Start 12/12/16 at 10:15; Stop 12/12/16 at 10:16; Status DC Pantoprazole Sodium (Protonix) 40 mg DAILYAC PO Last administered on 08:20; Start 12/12/16 at 11:30 Insulin Aspart (NovoLOG) 0-5 UNITS TIDWMEALS SQ Last administered on 17:30; Start 12/12/16 at 17:00; Stop 12/15/16 at 08:13; Status DC Dextrose (Dextrose 50%-Water Syringe) 12.5 gm PRN Q15MIN PRN IV SEE COMMENTS; Start 12/12/16 at 17:00 Lorazepam (Ativan) 0.5 mg PRN Q8HRS PRN PO ANXIETY / AGITATION; Start at 17:00 Al Hydroxide/Mg Hydroxide (Mylanta Plus Xs) 15 ml PRN Q4HRS PRN PO HEARTBURN / GAS Last administered on 12/12/16 20:22; Start 12/12/16 at 20:00 Topiramate (Topamax) 25 mg BID PO Last administered on 12/15/16 08:18; Start 12/13/16 at 21:00 Acetazolamide (Diamox) 250 mg TID PO Last administered on 12/15/16 08:21; Start 12/13/16 at 21:00 Morphine Sulfate 2 mg PRN Q4HRS PRN IV PAIN; Start 12/14/16 at 16:30 Active Scripts Active Reported Prevacid (Lansoprazole) 30 Mg Capsule.dr 1 Cap PO DAILY Tresiba Flextouch U-200 (Insulin Degludec) 200 Unit/1 Ml Insuln.pen 20 Unit SQ HS Potassium Chloride 20 Meq Tablet.er 20 Meq PO DAILY Claritin (Loratadine) 10 Mg Tablet 1 Tab PO DAILY Montelukast Sodium Tablet (Montelukast Sodium) 10 Mg Tablet 10 Mg PO HS Atorvastatin Calcium 10 Mg Tablet 10 Mg PO HS Meloxicam 15 Mg Tablet 1 Tab PO DAILY Amitriptyline Hcl 10 Mg Tablet 1 Tab PO QHS Glipizide 10 Mg Tablet 10 Mg PO DAILY Cymbalta (Duloxetine Hcl) 30 Mg Capsule.dr 30 Mg PO BID Losartan Potassium 100 Mg Tablet 100 Mg PO DAILY Gabapentin 300 Mg Capsule 300 Mg PO HS Verapamil Er (Verapamil Hcl) 240 Mg Cap24h.pel 1 Cap PO HS Hydralazine Hcl 25 Mg Tablet 1 Tab PO TID Phentermine Hcl 37.5 Mg Capsule 37.5 Mg PO DAILY Hydrochlorothiazide Tablet (Hydrochlorothiazide) 25 Mg Tablet 1 Tab PO DAILY Symbicort 160-4.5 Mcg Inhaler (Budesonide/Formoterol Fumarate) 10.2 Gm Hfa.aer.ad 2 Puff IH BID Meclizine Hcl 25 Mg Tablet 1 Tab PO TID Vitals/I & O Vital Sign - Last 24 Hours 12/14/16 12/14/16 12/14/16 12/14/16 12:24 15:00 16:46 19:00 Temp 98.2 98.3 98.2 98.3 Pulse 85 84 Resp 18 18 B/P (MAP) 119/52 (74) 131/69 (89) Pulse Ox 97 O2 Delivery Room Air Room Air Room Air Room Air O2 Flow Rate 95.0 12/14/16 12/14/16 12/14/16 12/14/16 19:25 19:26 19:27 19:28 Resp 20 Pulse Ox 97 97 O2 Delivery Room Air Room Air Room Air Room Air 12/14/16 12/14/16 12/14/16 12/14/16 20:27 20:29 20:29 23:00 Temp 98.3 98.3 Pulse 84 84 73 Resp 20 18 B/P (MAP) 131/69 131/69 119/63 (81) Pulse Ox 97 O2 Delivery Room Air Room Air 12/15/16 12/15/16 12/15/16 12/15/16 03:00 07:00 07:20 08:20 Temp 97.5 97.5 97.5 97.5 Pulse 67 58 58 Resp 22 20 B/P (MAP) 114/57 (76) 114/72 (86) 114/72 Pulse Ox 96 94 94 O2 Delivery Room Air Room Air Room Air 12/15/16 12/15/16 12/15/16 10:25 10:27 10:27 Temp 96.7 96.7 Pulse 47 Resp 20 B/P (MAP) 76/42 (53) 81/55 (64) 83/49 (60) Pulse Ox 95 O2 Delivery Room Air Images CSF opening pressure on 12/13/16 is 27 Cm H2O, closing pressure 24 cm H2O. Brain MRI, 12/12: FINDINGS: The ventricles and sulci are within normal limits for age. FLAIR hyperintensities in the supratentorial white matter are not specific but most suggestive of mild small vessel ischemic disease. There is no acute intracranial hemorrhage or extra-axial fluid collection. There is no mass effect or midline shift. There is no restricted diffusion to suggest an acute infarct. Intracranial flow voids are preserved. Cervicomedullary junction is unremarkable. Orbital contents are grossly unremarkable on whole brain imaging. The included paranasal sinuses and mastoid air cells are clear. There is no pathologic enhancement. There is a small left frontal developmental venous anomaly which is a normal vascular variant. IMPRESSION: 1. No acute intracranial findings. 2. Mild probable small vessel ischemic disease. ADAIR MORALES MD Dec 15, 2016 11:17
[2016-12-15] MEDS ORDERED: IV DEXTROSE 5% - 0.9 % NACL 500 ML IV ONE (11:30)
[2016-12-15] MEDS: HYDROcodone/APAP 7.5/325MG 1 TAB TABLET PO PRN (15:21)
[2016-12-15] MEDS: MAG HYDROX/ALUMINUM HYD/SIMETH 30 ML ORAL.SUSP PO PRN (16:41)
[2016-12-15] MEDS: MONTELUKAST SODIUM 10 MG TABLET. PO SCH (21:10)
[2016-12-15] MEDS: ATORVASTATIN CALCIUM 10 MG TABLET. PO SCH (21:10)
[2016-12-15] MEDS: GABAPENTIN 300 MG CAPSULE. PO SCH (21:10)
[2016-12-15] MEDS: AMITRIPTYLINE HCL 10 MG TABLET. PO SCH (21:10)
[2016-12-15] MEDS: METOPROLOL SUCC 24HR ER 50 MG TAB.ER.24H. PO SCH (21:11)
[2016-12-15] MEDS: INSULIN DETEMIR 300 UNITS/3 ML INSULN.PEN. SQ SCH (21:17)
[2016-12-16 03:15] VITALS: BP 107/69
[2016-12-16 04:17] LABS: HEMATOCRIT 36.1 % (36.0-47.0); HEMOGLOBIN 11.3 g/dL (12.0-15.5); RED BLOOD COUNT 4.36 x10^6/uL (3.50-5.40); RED CELL DISTRIBUTION WIDTH 15.5 % (11.5-14.5); WHITE BLOOD COUNT 7.9 x10^3/uL (4.0-11.0)
[2016-12-16 04:42] LABS: ALBUMIN 2.8 g/dL (3.4-5.0); ALBUMIN/GLOBULIN RATIO 0.7 (1.0-1.7); CALCIUM 9.1 mg/dL (8.5-10.1); CREATININE 1.1 mg/dL (0.6-1.0); GFR 60.3; POTASSIUM 4.4 mmol/L (3.5-5.1); TOTAL BILIRUBIN 0.1 mg/dL (0.2-1.0); TOTAL PROTEIN 6.9 g/dL (6.4-8.2)
[2016-12-16 07:00] VITALS: BP 129/68
[2016-12-16] MEDS: BUDESONIDE 0.5 MG/2 ML NEBU. NEB SCH (07:37)
[2016-12-16] MEDS: ALBUTEROL SULFATE 2.5 MG/3 ML NEBU. NEB SCH ×2 (07:37→11:33)
[2016-12-16] MEDS: PANTOPRAZOLE 40 MG TABLET.DR. PO SCH (07:59)
[2016-12-16] MEDS: glipiZIDE 5 MG TABLET PO SCH (08:02)
[2016-12-16] MEDS: CETIRIZINE HCL 10 MG TABLET. PO SCH (08:34)
[2016-12-16] MEDS: acetaZOLAMIDE 250 MG TABLET. PO SCH ×2 (08:34→13:14)
[2016-12-16] MEDS: MECLIZINE HCL 12.5 MG TABLET. PO SCH ×2 (08:34→13:14)
[2016-12-16] MEDS: DULoxetine HCL 30 MG CAPSULE.DR PO SCH (08:34)
[2016-12-16] MEDS: POTASSIUM CHLORIDE 20 MEQ TABLET.ER. PO SCH (08:35)
[2016-12-16] MEDS: MELOXICAM 7.5 MG TABLET PO SCH (08:35)
[2016-12-16] MEDS: TOPIRAMATE 25 MG TABLET. PO SCH (08:38)
--- NOTE | 2016-12-16 09:57 | PDOC ---
SUBJECTIVE Subjective taking shower in [facility] bathroom, reports feeling better, seem to need help with her activities.might need SNU, dizziness better, Bp better, OBJECTIVE Vital Signs Vital Signs Date Time Temp Pulse Resp B/P (MAP) Pulse Ox O2 Delivery O2 Flow Rate FiO2 12/16/16 08:00 Room Air 12/16/16 07:38 96 Room Air 12/16/16 07:00 96.6 54 18 129/68 (88) 100 Room Air 96.6 12/16/16 03:15 97.8 62 20 107/69 (82) 96 Room Air 97.8 12/15/16 23:00 97.9 64 20 97/49 (65) 95 Room Air 97.9 12/15/16 21:11 61 109/55 12/15/16 19:51 97 Room Air 12/15/16 19:50 97 Room Air 12/15/16 19:00 97.5 61 20 109/55 (73) 97 Room Air 97.5 12/15/16 16:39 18 95 Room Air 95.0 12/15/16 16:15 97.6 60 90/44 (59) 95 Room Air 95.0 97.6 12/15/16 16:14 97.6 60 90/44 (59) 95 Room Air 95.0 97.6 12/15/16 15:21 95 Room Air 95.0 12/15/16 15:00 97.6 60 90/44 (59) 98 Room Air 97.6 12/15/16 10:27 83/49 (60) 12/15/16 10:27 81/55 (64) 12/15/16 10:25 96.7 47 20 76/42 (53) 95 Room Air 96.7 I & O Intake and Output 12/17/16 07:00 Intake Total 300 ml Balance 300 ml Intake Oral 300 ml PHYSICAL EXAM Physical Exam no change ASSESSMENT/PLAN Assessment/Plan BS good , kidney function better, Bp meds on hold due to hypotension yesterday , need more PT , would be ideal to go to SNU will check with social [facility]. Problems: COMMENT Lab Laboratory Tests Test 12/15/16 11:43 12/15/16 17:37 12/15/16 21:07 12/16/16 03:50 Glucose (Fingerstick) 157 mg/dL (70-99) 125 mg/dL (70-99) 129 mg/dL (70-99) White Blood Count 7.9 x10^3/uL (4.0-11.0) Red Blood Count 4.36 x10^6/uL (3.50-5.40) Hemoglobin 11.3 g/dL (12.0-15.5) Hematocrit 36.1 % (36.0-47.0) Mean Corpuscular Volume 83 fL (79-100) Mean Corpuscular Hemoglobin 26 pg (25-35) Mean Corpuscular Hemoglobin Concent 31 g/dL (31-37) Red Cell Distribution Width 15.5 % (11.5-14.5) Platelet Count 358 x10^3/uL (140-400) Sodium Level 139 mmol/L (136-145) Potassium Level 4.4 mmol/L (3.5-5.1) Chloride Level 105 mmol/L (98-107) Carbon Dioxide Level 28 mmol/L (21-32) Anion Gap 6 (6-14) Blood Urea Nitrogen 26 mg/dL (7-20) Creatinine 1.1 mg/dL (0.6-1.0) Estimated GFR (Cockcroft-Gault) 60.3 BUN/Creatinine Ratio 24 (6-20) Glucose Level 118 mg/dL (70-99) Calcium Level 9.1 mg/dL (8.5-10.1) Total Bilirubin 0.1 mg/dL (0.2-1.0) Aspartate Amino Transf (AST/SGOT) 21 U/L (15-37) Alanine Aminotransferase (ALT/SGPT) 36 U/L (14-59) Alkaline Phosphatase 106 U/L (46-116) Total Protein 6.9 g/dL (6.4-8.2) Albumin 2.8 g/dL (3.4-5.0) Albumin/Globulin Ratio 0.7 (1.0-1.7) Test 12/16/16 07:21 Glucose (Fingerstick) 91 mg/dL (70-99) JUAN MURRELL MD Dec 16, 2016 09:56
[2016-12-16 11:00] VITALS: BP 127/67
--- NOTE | 2016-12-16 11:04 | PDOC ---
PROGRESS NOTES Assessment Headaches related to benign intracranial hypertension and migraines No evidence of acute CVA or brain tumor. Episode of hypotension yesterday, better after fluid bolus Plan Morphine 2 mg q4h PRN while in hospital. Topamax 25 mg bid. Diamox 250 mg tid. Weight reduction. Treat medical diseases. Okay for discharge, but note plans for possible shelter unit Follow-up with Dr. Torres In one month Subjective Headache is 7/10 Objective Vital Signs Date Time Temp Pulse Resp B/P (MAP) Pulse Ox O2 Delivery O2 Flow Rate FiO2 12/16/16 08:00 Room Air 12/16/16 07:38 96 12/16/16 07:00 96.6 54 18 129/68 (88) 96.6 12/15/16 16:39 95.0 Intake and Output 12/17/16 07:00 Intake Total 300 ml Balance 300 ml Intake Oral 300 ml PHYSICAL EXAM Alert. Oriented to time, place and person. PERRL. EOMI. CN: no focal findings. Muscle tone: normal. Muscle strength: 5/5 DTR: 2+ Plantar reflex: flexor Gait: normal Sensory exam: no abnormal findings. No cerebellar signs elicited. Review of Relevant I have reviewed the following items mary (where applicable) has been applied. Labs Laboratory Tests Test 12/14/16 16:17 12/14/16 21:51 12/15/16 07:25 12/15/16 08:50 Glucose (Fingerstick) 185 mg/dL (70-99) 159 mg/dL (70-99) 133 mg/dL (70-99) Sodium Level 137 mmol/L (136-145) Potassium Level 4.6 mmol/L (3.5-5.1) Chloride Level 102 mmol/L (98-107) Carbon Dioxide Level 29 mmol/L (21-32) Anion Gap 6 (6-14) Blood Urea Nitrogen 29 mg/dL (7-20) Creatinine 1.2 mg/dL (0.6-1.0) Estimated GFR (Cockcroft-Gault) 54.6 Glucose Level 183 mg/dL (70-99) Calcium Level 9.0 mg/dL (8.5-10.1) Test 12/15/16 11:43 12/15/16 17:37 12/15/16 21:07 12/16/16 03:50 Glucose (Fingerstick) 157 mg/dL (70-99) 125 mg/dL (70-99) 129 mg/dL (70-99) White Blood Count 7.9 x10^3/uL (4.0-11.0) Red Blood Count 4.36 x10^6/uL (3.50-5.40) Hemoglobin 11.3 g/dL (12.0-15.5) Hematocrit 36.1 % (36.0-47.0) Mean Corpuscular Volume 83 fL (79-100) Mean Corpuscular Hemoglobin 26 pg (25-35) Mean Corpuscular Hemoglobin Concent 31 g/dL (31-37) Red Cell Distribution Width 15.5 % (11.5-14.5) Platelet Count 358 x10^3/uL (140-400) Sodium Level 139 mmol/L (136-145) Potassium Level 4.4 mmol/L (3.5-5.1) Chloride Level 105 mmol/L (98-107) Carbon Dioxide Level 28 mmol/L (21-32) Anion Gap 6 (6-14) Blood Urea Nitrogen 26 mg/dL (7-20) Creatinine 1.1 mg/dL (0.6-1.0) Estimated GFR (Cockcroft-Gault) 60.3 BUN/Creatinine Ratio 24 (6-20) Glucose Level 118 mg/dL (70-99) Calcium Level 9.1 mg/dL (8.5-10.1) Total Bilirubin 0.1 mg/dL (0.2-1.0) Aspartate Amino Transf (AST/SGOT) 21 U/L (15-37) Alanine Aminotransferase (ALT/SGPT) 36 U/L (14-59) Alkaline Phosphatase 106 U/L (46-116) Total Protein 6.9 g/dL (6.4-8.2) Albumin 2.8 g/dL (3.4-5.0) Albumin/Globulin Ratio 0.7 (1.0-1.7) Test 12/16/16 07:21 Glucose (Fingerstick) 91 mg/dL (70-99) Laboratory Tests Test 12/15/16 11:43 12/15/16 17:37 12/15/16 21:07 12/16/16 03:50 Glucose (Fingerstick) 157 mg/dL (70-99) 125 mg/dL (70-99) 129 mg/dL (70-99) White Blood Count 7.9 x10^3/uL (4.0-11.0) Red Blood Count 4.36 x10^6/uL (3.50-5.40) Hemoglobin 11.3 g/dL (12.0-15.5) Hematocrit 36.1 % (36.0-47.0) Mean Corpuscular Volume 83 fL (79-100) Mean Corpuscular Hemoglobin 26 pg (25-35) Mean Corpuscular Hemoglobin Concent 31 g/dL (31-37) Red Cell Distribution Width 15.5 % (11.5-14.5) Platelet Count 358 x10^3/uL (140-400) Sodium Level 139 mmol/L (136-145) Potassium Level 4.4 mmol/L (3.5-5.1) Chloride Level 105 mmol/L (98-107) Carbon Dioxide Level 28 mmol/L (21-32) Anion Gap 6 (6-14) Blood Urea Nitrogen 26 mg/dL (7-20) Creatinine 1.1 mg/dL (0.6-1.0) Estimated GFR (Cockcroft-Gault) 60.3 BUN/Creatinine Ratio 24 (6-20) Glucose Level 118 mg/dL (70-99) Calcium Level 9.1 mg/dL (8.5-10.1) Total Bilirubin 0.1 mg/dL (0.2-1.0) Aspartate Amino Transf (AST/SGOT) 21 U/L (15-37) Alanine Aminotransferase (ALT/SGPT) 36 U/L (14-59) Alkaline Phosphatase 106 U/L (46-116) Total Protein 6.9 g/dL (6.4-8.2) Albumin 2.8 g/dL (3.4-5.0) Albumin/Globulin Ratio 0.7 (1.0-1.7) Test 12/16/16 07:21 Glucose (Fingerstick) 91 mg/dL (70-99) Microbiology 12/13/16 Gram Stain - Final, Complete Medications Current Medications Acetaminophen (Tylenol) 500 mg PRN Q6HRS PRN PO MILD PAIN / TEMP; Start at 13:30 Acetaminophen/ Hydrocodone Bitart (Lortab 7.5/325) 1 tab PRN Q8HRS PRN PO PAIN Last administered on 12/15/16 15:21; Start 12/11/16 at 13:30 Morphine Sulfate 2 mg PRN Q8HRS PRN IV PAIN Last administered on 12/13/16 21: 18; Start 12/11/16 at 13:30; Stop 12/14/16 at 16:22; Status DC Ondansetron HCl (Zofran) 4 mg PRN Q8HRS PRN IV NAUSEA/VOMITING Last administered on 12/14/16 08:16; Start 12/11/16 at 13:30 Amitriptyline HCl (Elavil) 10 mg QHS PO Last administered on 12/15/16 21:10; Start 12/11/16 at 21:00 Atorvastatin Calcium (Lipitor) 10 mg HS PO Last administered on 12/15/16 21: 10; Start 12/11/16 at 21:00 Duloxetine HCl (Cymbalta) 30 mg BID PO Last administered on 12/16/16 08:34; Start 12/11/16 at 21:00 Hydralazine HCl (Apresoline) 25 mg TID PO Last administered on 12/12/16 07:55 ; Start 12/11/16 at 14:00; Stop 12/12/16 at 09:47; Status DC Hydrochlorothiazide (Hydrodiuril) 25 mg DAILY PO Last administered on 07:56; Start 12/12/16 at 09:00; Stop 12/14/16 at 09:10; Status DC Montelukast Sodium (Singulair) 10 mg HS PO Last administered on 12/15/16 21: 10; Start 12/11/16 at 21:00 Non-Formulary Medication 2 puff BID IH ; Start 12/11/16 at 21:00; Status UNV Gabapentin (Neurontin) 300 mg QHS PO Last administered on 12/15/16 21:10; Start 12/11/16 at 21:00 Glipizide (Glucotrol) 10 mg DAILYAC PO Last administered on 12/16/16 08:02; Start 12/12/16 at 07:30 Non-Formulary Medication 20 unit HS SQ ; Start 12/11/16 at 21:00; Stop at 21:00; Status DC Cetirizine HCl (ZyrTEC) 10 mg DAILY PO Last administered on 12/16/16 08:34; Start 12/12/16 at 09:00 Losartan Potassium (Cozaar) 100 mg DAILY PO Last administered on 12/15/16 08: 20; Start 12/12/16 at 09:00; Stop 12/15/16 at 11:15; Status DC Meclizine HCl (Antivert) 25 mg TID PO Last administered on 12/16/16 08:34; Start 12/11/16 at 14:00 Meloxicam (Mobic) 15 mg DAILY PO Last administered on 12/16/16 08:35; Start 12/12/16 at 09:00 Potassium Chloride (Klor-Con) 20 meq DAILYWBKFT PO Last administered on 08:35; Start 12/12/16 at 08:00 Verapamil HCl (Calan Sr) 240 mg QHS PO Last administered on 12/14/16 20:29; Start 12/11/16 at 21:00; Stop 12/15/16 at 08:18; Status DC Metoprolol Succinate (Toprol Xl) 50 mg HS PO Last administered on 12/15/16 21 :11; Start 12/11/16 at 21:00 Budesonide (Pulmicort) 0.5 mg RTBID NEB Last administered on 12/16/16 07:37; Start 12/11/16 at 20:00 Albuterol Sulfate (Ventolin Neb Soln) 2.5 mg RTQID NEB Last administered on 07:37; Start 12/11/16 at 16:00 Insulin Detemir (Levemir) 20 units QHS SQ Last administered on 12/15/16 21:17 ; Start 12/11/16 at 21:00 Enoxaparin Sodium (Lovenox 40mg Syringe) 40 mg Q12HR SQ Last administered on 08:00; Start 12/11/16 at 21:00; Stop 12/12/16 at 15:44; Status DC Labetalol HCl (Normodyne) 20 mg PRN Q2HR PRN IVP HYPERTENSION, SEE COMMENTS; Start 12/11/16 at 16:45; Stop 12/14/16 at 09:10; Status DC Lorazepam (Ativan) 1 mg 1X ONCE PO Last administered on 12/12/16 09:37; Start 12/12/16 at 09:30; Stop 12/12/16 at 09:34; Status DC Gadobutrol (Gadavist) 10 mmol 1X ONCE IV Last administered on 12/12/16 10:24 ; Start 12/12/16 at 10:15; Stop 12/12/16 at 10:16; Status DC Pantoprazole Sodium (Protonix) 40 mg DAILYAC PO Last administered on 07:59; Start 12/12/16 at 11:30 Insulin Aspart (NovoLOG) 0-5 UNITS TIDWMEALS SQ Last administered on 17:30; Start 12/12/16 at 17:00; Stop 12/15/16 at 08:13; Status DC Dextrose (Dextrose 50%-Water Syringe) 12.5 gm PRN Q15MIN PRN IV SEE COMMENTS; Start 12/12/16 at 17:00 Lorazepam (Ativan) 0.5 mg PRN Q8HRS PRN PO ANXIETY / AGITATION; Start at 17:00 Al Hydroxide/Mg Hydroxide (Mylanta Plus Xs) 15 ml PRN Q4HRS PRN PO HEARTBURN / GAS Last administered on 12/15/16 16:41; Start 12/12/16 at 20:00 Topiramate (Topamax) 25 mg BID PO Last administered on 12/16/16 08:38; Start 12/13/16 at 21:00 Acetazolamide (Diamox) 250 mg TID PO Last administered on 12/16/16 08:34; Start 12/13/16 at 21:00 Morphine Sulfate 2 mg PRN Q4HRS PRN IV PAIN; Start 12/14/16 at 16:30 Dextrose/Sodium Chloride 500 ml @ 0 mls/hr 1X ONCE IV Last administered on 11:28; Start 12/15/16 at 11:30; Stop 12/15/16 at 11:31; Status DC Active Scripts Active Reported Prevacid (Lansoprazole) 30 Mg Capsule.dr 1 Cap PO DAILY Tresiba Flextouch U-200 (Insulin Degludec) 200 Unit/1 Ml Insuln.pen 20 Unit SQ HS Potassium Chloride 20 Meq Tablet.er 20 Meq PO DAILY Claritin (Loratadine) 10 Mg Tablet 1 Tab PO DAILY Montelukast Sodium Tablet (Montelukast Sodium) 10 Mg Tablet 10 Mg PO HS Atorvastatin Calcium 10 Mg Tablet 10 Mg PO HS Meloxicam 15 Mg Tablet 1 Tab PO DAILY Amitriptyline Hcl 10 Mg Tablet 1 Tab PO QHS Glipizide 10 Mg Tablet 10 Mg PO DAILY Cymbalta (Duloxetine Hcl) 30 Mg Capsule.dr 30 Mg PO BID Losartan Potassium 100 Mg Tablet 100 Mg PO DAILY Gabapentin 300 Mg Capsule 300 Mg PO HS Verapamil Er (Verapamil Hcl) 240 Mg Cap24h.pel 1 Cap PO HS Hydralazine Hcl 25 Mg Tablet 1 Tab PO TID Phentermine Hcl 37.5 Mg Capsule 37.5 Mg PO DAILY Hydrochlorothiazide Tablet (Hydrochlorothiazide) 25 Mg Tablet 1 Tab PO DAILY Symbicort 160-4.5 Mcg Inhaler (Budesonide/Formoterol Fumarate) 10.2 Gm Hfa.aer.ad 2 Puff IH BID Meclizine Hcl 25 Mg Tablet 1 Tab PO TID Vitals/I & O Vital Sign - Last 24 Hours 12/15/16 12/15/16 12/15/16 12/15/16 15:00 15:21 16:14 16:15 Temp 97.6 97.6 97.6 97.6 97.6 97.6 Pulse 60 60 60 B/P (MAP) 90/44 (59) 90/44 (59) 90/44 (59) Pulse Ox 98 95 95 95 O2 Delivery Room Air Room Air Room Air Room Air O2 Flow Rate 95.0 95.0 95.0 12/15/16 12/15/16 12/15/16 12/15/16 16:39 19:00 19:50 19:51 Temp 97.5 97.5 Pulse 61 Resp 18 20 B/P (MAP) 109/55 (73) Pulse Ox 95 97 97 97 O2 Delivery Room Air Room Air Room Air Room Air O2 Flow Rate 95.0 12/15/16 12/15/16 12/16/16 12/16/16 21:11 23:00 03:15 07:00 Temp 97.9 97.8 96.6 97.9 97.8 96.6 Pulse 61 64 62 54 Resp 20 20 18 B/P (MAP) 109/55 97/49 (65) 107/69 (82) 129/68 (88) Pulse Ox 95 96 100 O2 Delivery Room Air Room Air Room Air 12/16/16 12/16/16 07:38 08:00 Pulse Ox 96 O2 Delivery Room Air Room Air Intake and Output 12/16/16 12/16/16 12/17/16 15:00 23:00 07:00 Intake Total 300 ml Balance 300 ml ADAIR MORALES MD Dec 16, 2016 11:04
--- NOTE | 2016-12-16 13:48 | PDOC3 ---
Discharge Summary* Date of Admission: Dec 11, 2016 Date of Discharge: Dec 16, 2016 Final Diagnosis 1-peripheral vertigo associated was nausea and vomiting and not controlled with medications by mouth 2-Hypertension uncontrolled due to not able to take her medications by mouth 3-hyperlipidemia 4- [place] due to benign itracranial HTN and Migrain 4-morbid obesity 5-sleep apnea 6-diabetes mellitus type 2 7-degenerative joint disease CONSULTS Neurology Procedures MRI umang, CT head lumbar puncture opening pressure 27 and closing 24 Brief Hospital Course Ms. Hernandez is a 66 old [sex] who presented with [ ] Disposition/Orders: D/C to Another Facility CONDITION AT DISCHARGE: Improved Diet: Cardiac, Consistent Carbohydrate Scheduled Amitriptyline Hcl (Amitriptyline Hcl), 1 TAB PO QHS, (Reported) Atorvastatin Calcium (Atorvastatin Calcium), 10 MG PO HS, (Reported) Budesonide/Formoterol Fumarate (Symbicort 160-4.5 Mcg Inhaler), 2 PUFF IH BID, ( Reported) Duloxetine Hcl (Cymbalta), 30 MG PO BID, (Reported) Gabapentin (Gabapentin), 300 MG PO HS, (Reported) Glipizide (Glipizide), 10 MG PO DAILY, (Reported) Hydralazine Hcl (Hydralazine Hcl), 1 TAB PO TID, (Reported) Hydrochlorothiazide (Hydrochlorothiazide Tablet ), 1 TAB PO DAILY, (Reported) Insulin Degludec (Tresiba Flextouch U-200), 20 UNIT SQ HS, (Reported) Lansoprazole (Prevacid), 1 CAP PO DAILY, (Reported) Loratadine (Claritin), 1 TAB PO DAILY, (Reported) Losartan Potassium (Losartan Potassium), 100 MG PO DAILY, (Reported) Meclizine Hcl (Meclizine Hcl), 1 TAB PO TID, (Reported) Meloxicam (Meloxicam), 1 TAB PO DAILY, (Reported) Montelukast Sodium (Montelukast Sodium Tablet), 10 MG PO HS, (Reported) Phentermine Hcl (Phentermine Hcl), 37.5 MG PO DAILY, (Reported) Potassium Chloride (Potassium Chloride), 20 MEQ PO DAILY, (Reported) Verapamil Hcl (Verapamil Er), 1 CAP PO HS, (Reported) FOLLOW UP APPOINTMENT: 1-[address] Murrell on diamox 250 TID, Bp meds stopped due to low Bp Time Spent Total time spent with patient [] minutes for coordination of care, counseling, and education. JUAN MURRELL MD Dec 16, 2016 13:48
[2016-12-16 21:11] LABS: HERPES SIMPLEX TYPE 1 Negative (Negative); HERPES SIMPLEX TYPE 2 Negative (Negative)
== END 2016-12-16 14:02 | DRG 103 ==
LOC: 5 NORTH 11:45
PROVIDERS: ADMIT Internal Medicine; ATTEND Internal Medicine
PROC: 009U3ZX Drainage of Spinal Canal, Percutaneous Approach, Diagnostic (ICD-10-PCS; principal; 2016-12-13)
PROC: B01B1ZZ Fluoroscopy of Spinal Cord using Low Osmolar Contrast (ICD-10-PCS; 2016-12-13)
DX: G93.2 Benign intracranial hypertension (principal); I95.9 Hypotension, unspecified; E66.01 Morbid (severe) obesity due to excess calories; Z68.42 Body mass index [BMI] 45.0-49.9, adult; H81.399 Other peripheral vertigo, unspecified ear; E11.9 Type 2 diabetes mellitus without complications; E78.5 Hyperlipidemia, unspecified; G43.909 Migraine, unspecified, not intractable, without status migrainosus; G47.30 Sleep apnea, unspecified; I10 Essential (primary) hypertension; J45.909 Unspecified asthma, uncomplicated; K21.9 Gastro-esophageal reflux disease without esophagitis; M19.90 Unspecified osteoarthritis, unspecified site; F32.9 Major depressive disorder, single episode, unspecified; Z82.49 Family history of ischemic heart disease and other diseases of the circulatory system; Z87.440 Personal history of urinary (tract) infections; Z88.2 Allergy status to sulfonamides; Z91.018 Allergy to other foods
CPT/HCPCS: 36415; 62270; 70450; 70553; 80048; 80053; 80061; 80307; 82945; 82962; 84157; 84443; 85025; 85027; 85610; 85651; 87071; 87075; 87205; 87529; 89051; 94250; 94640; 94760; A9585; J1650; J1815; J2270; J2405; J7042; J7613; J7626; J8597; 97116; 97140; 97530; G0479

== ENCOUNTER → 2017-08-04 | Outpatient (CLI) | payer MEDICARE | END | disposition home or self-care (01) | LOC: KCIC MRI 09:52 | DX: M17.12 Unilateral primary osteoarthritis, left knee (principal); M22.42 Chondromalacia patellae, left knee | CPT/HCPCS: 73721 ==

== ENCOUNTER → 2017-09-23 | Outpatient (CLI) | payer MEDICARE | END | disposition home or self-care (01) | LOC: ECHO 07:05 | DX: I25.10 Atherosclerotic heart disease of native coronary artery without angina pectoris (principal); I10 Essential (primary) hypertension; E11.9 Type 2 diabetes mellitus without complications; J45.909 Unspecified asthma, uncomplicated; K21.9 Gastro-esophageal reflux disease without esophagitis; G43.909 Migraine, unspecified, not intractable, without status migrainosus | CPT/HCPCS: C8929 ==

== ENCOUNTER → 2017-11-12 | Outpatient (CLI) | payer MEDICARE, MEDICAID ==
[~2017-11-12] MED LIST: AMIT10TA PO; ATOR10TA60 PO; BUDE10.2 IH; DULO30CA2 PO; GABA-586 PO; GLIP10TA13 PO; HYDR-2868 PO; HYDR25TA9 PO; INSU200I4 SQ; LANS30CA66 PO; LORA10TA68 PO; LOSA100T7 PO; MECL25TA3 PO; MELO15TA23 PO; MONT10TA9 PO; PHEN37.53 PO; POTA20TA82 PO; VERA240C2 PO
--- NOTE | 2017-11-12 15:58 | KCIC ---
Bilateral digital screening mammograms: Reason for examination: Routine screening. History of bilateral breast reduction. Comparison is made to previous study dated 10/17/2016. Interpretation was made with the benefit of CAD. The patient was too unsteady for 3D tomosynthesis at this time. The skin and nipples show no abnormalities. No abnormal axillary lymph nodes are seen. The breast parenchyma shows scattered fibroglandular density. (Breast density: Category B.) There are no dominant masses, suspicious calcifications or architectural distortions. There are small intramammary lymph nodes present on the right. Some benign appearing scattered and clustered calcifications are present and appear to be stable. Impression: No evidence of malignancy. Recommend routine screening. BI-RADS category 2: Benign "Our facility is accredited by the [employer] Mammography [employer]." This patient's information has been entered into a reminder system for the patient to be notified with the results of her examination and a target date for the next mammogram. Electronically signed by: Rebecca Reyes MD (11/12/2017 3:55 PM) [id number]
== END | disposition home or self-care (01) ==
LOC: KCIC MAMMO 10:10
PROVIDERS: ATTEND Physician Assistant Surgical
DX: Z12.31 Encounter for screening mammogram for malignant neoplasm of breast (principal); I10 Essential (primary) hypertension; E11.9 Type 2 diabetes mellitus without complications; E78.5 Hyperlipidemia, unspecified; M17.12 Unilateral primary osteoarthritis, left knee; J45.909 Unspecified asthma, uncomplicated; I25.10 Atherosclerotic heart disease of native coronary artery without angina pectoris; K21.9 Gastro-esophageal reflux disease without esophagitis; Z87.440 Personal history of urinary (tract) infections; Z91.018 Allergy to other foods; Z88.2 Allergy status to sulfonamides; Z82.49 Family history of ischemic heart disease and other diseases of the circulatory system
CPT/HCPCS: 77067